=== PATIENT | male | born 1950 | race Caucasian/White ===

== ENCOUNTER 2017-01-10 10:26 | Emergency (ER) | payer MEDICARE, MEDICAID ==
[~2017-01-10] VITALS: Ht 177.8 cm; Wt 70.5 kg
[~2017-01-10 10:26] MED LIST: BLOOD PRESSURE; IBU800 M1 PO; LOPRESSOR; LORTAB 5/500 501 TAB PO; MOTRIN600 MG PO; MOTRIN800 MG PO; MVI; NO HOME MEDICATIONS; NORCO 325 MG-51 TAB PO; ULTRAM50 MG PO; VIBRAMYCIN HYC100 MG PO; VICODIN 5/5001 UDTAB PO
[2017-01-10 10:29] VITALS: BP 186/95; TEMP 97.9
[2017-01-10] MEDS ORDERED: LORTABELIX PO (10:54)
[2017-01-10 11:22] LABS: BASO # 0.1 (0.0-0.2); BASO % 0.7 % (0.0-2.0); EOS # 0.1 (0.0-0.7); EOS % 1.3 % (0-4.0); GRAN # 4.5 (1.4-6.5); GRAN % 51.3 % (42.2-75.2); HEMATOCRIT 45.4 % (42.0-52.0); HEMOGLOBIN 15.3 g/dl (13.5-18.0); LYMPH # 3.1 (1.2-3.4); LYMPH % 35.7 % (20.0-51.0); MEAN CELL VOLUME 96 fl (80.0-100.0); MEAN CORPUSCULAR HEMOGLOBIN 32 pg (27.0-31.0); MEAN CORPUSCULAR HGB CONC 34 g/dl (33.0-37.0); MEAN PLATELET VOLUME 11.3 fl (7.4-10.4); MONO # 0.9 (0.1-0.6); MONO % 10.7 % (1.7-9.3); PLATELET COUNT 204 K/mm3 (130-400); RED BLOOD COUNT 4.75 M/mm3 (4.20-5.60); REDCELL DISTRIBUTION WIDTH-CV 14.6 % (11.5-14.5); WHITE BLOOD COUNT 8.7 K/mm3 (4.8-10.8)
[2017-01-10 11:29] LABS: ADJUSTED CALCIUM 8.7 mg/dL (8.4-10.2); ALBUMIN 4.6 gm/dL (3.5-5.0); BILIRUBIN,TOTAL 0.6 mg/dL (0.0-1.0); CALCIUM 9.2 mg/dL (8.4-10.2); CREATININE, serum 0.76 mg/dL (0.66-1.25); POTASSIUM 3.8 mmol/L (3.4-5.0); TOTAL PROTEIN 7.7 gm/dL (6.4-8.2)
[2017-01-10 12:32] LABS: INFLUENZA B NEGATIVE
[2017-01-10 12:33] LABS: PH 6 (5-8); SQUAMOUS EPITHELIAL None Seen /hpf; URINE APPEARANCE Clear; URINE BACTERIA None Seen /hpf; URINE BILIRUBIN Negative (NEGATIVE); URINE BLOOD Negative (NEGATIVE); URINE COLOR Yellow; URINE GLUCOSE Negative (NEGATIVE); URINE KETONE Negative (NEGATIVE); URINE RBC 0-2 /hpf; URINE UROBILINOGEN Negative (NEGATIVE); URINE WBC 0-2 /hpf
[2017-01-10] MEDS ORDERED: PHENERGAN 25 TA25 MG PO (13:03)
[2017-01-10] MEDS ORDERED: ZITHROMAX 250M250 MG PO (13:03)
[2017-01-10] MEDS ORDERED: VENTOLIN0.09 MG IH (13:03)
[2017-01-10] MEDS ORDERED: MEDROL 4MG DOSPA4 MG PO (13:03)
[2017-01-10] MEDS ORDERED: NORVASC 5MG5 MG/TAB PO (13:04)
[2017-01-10 13:30] VITALS: PULSE 55
[2017-05-17] MEDS ORDERED: NORCO 325 MG-51 TAB PO (08:22)
[2017-05-17] MEDS ORDERED: MOTRIN 800800 MG/TAB PO (08:22)
== END 2017-01-10 13:30 | disposition home or self-care (01) ==
LOC: COL.ER 10:26
PROVIDERS: Emergency Medicine
DX: J44.1 Chronic obstructive pulmonary disease with (acute) exacerbation (principal); F11.23 Opioid dependence with withdrawal; T40.2X5A Adverse effect of other opioids, initial encounter; I10 Essential (primary) hypertension; R11.2 Nausea with vomiting, unspecified; F17.210 Nicotine dependence, cigarettes, uncomplicated
CPT/HCPCS: J1170; J2550; J7030; J7512

== ENCOUNTER 2018-02-06 05:52 | Emergency (ER) | payer MEDICARE ==
[~2018-02-06] VITALS: Ht 177.8 cm; Wt 72.7 kg
[~2018-02-06 05:52] MED LIST changes: +LORTABELIX PO; +MEDROL 4MG DOSPA4 MG PO; +MOTRIN 800800 MG/TAB PO; +NORVASC 5MG5 MG/TAB PO; +PHENERGAN 25 TA25 MG PO; +VENTOLIN0.09 MG IH; +ZITHROMAX 250M250 MG PO
[2018-02-06 05:55] VITALS: BP 174/96; TEMP 97.6
[2018-02-06] MEDS ORDERED: LIDODERM 5% PATC1 EA TP (07:13)
[2018-02-06 07:47] VITALS: PULSE 60
== END 2018-02-06 07:48 | disposition home or self-care (01) ==
LOC: COL.ER 05:52
DX: M25.511 Pain in right shoulder (principal); F17.210 Nicotine dependence, cigarettes, uncomplicated; X50.0XXA Overexertion from strenuous movement or load, initial encounter
CPT/HCPCS: J7512

== ENCOUNTER 2018-02-19 14:58 | Inpatient (IN) | payer MEDICARE ==
[~2018-02-19] VITALS: Ht 177.8 cm; Wt 79.6 kg
[~2018-02-19 14:58] MED LIST changes: +LIDODERM 5% PATC1 EA TP
[2018-02-19 15:47] LABS: BASO % 0.2 % (0.0-2.0); EOS % 0.1 % (0-4.0); GRAN # 17.1 (1.4-6.5); HEMATOCRIT 44.2 % (42.0-52.0); LYMPH % 5.1 % (20.0-51.0); MEAN CELL VOLUME 92 fl (80.0-100.0); MEAN CORPUSCULAR HEMOGLOBIN 33 pg (27.0-31.0); MEAN CORPUSCULAR HGB CONC 36 g/dl (33.0-37.0); MONO # 1.5 (0.1-0.6); MONO % 7.7 % (1.7-9.3); PLATELET COUNT 109 K/mm3 (130-400); RED BLOOD COUNT 4.82 M/mm3 (4.20-5.60); REDCELL DISTRIBUTION WIDTH-CV 14.5 % (11.5-14.5)
[2018-02-19 15:59] LABS: ALBUMIN 3.5 gm/dL (3.5-5.0); CALCIUM 9.6 mg/dL (8.4-10.2); CREATININE, serum 1.68 mg/dL (0.66-1.25); POTASSIUM 3.5 mmol/L (3.4-5.0)
[2018-02-19] MEDS ORDERED: NEXIUM 20MG20 MG PO (16:02)
[2018-02-19] MEDS ORDERED: ASPIRIN 32325 MG/TAB PO (16:02)
[2018-02-19 16:08] LABS: TROPONIN-I 0.019 ng/mL (0.000-0.034)
[2018-02-19 16:30] LABS: C-REACTIVE PROTEIN 41.9 mg/dL (0.0-0.9)
[2018-02-19 17:32] LABS: COLLECTION METHOD CLEAN CATCH
[2018-02-19 17:40] LABS: HYALINE CAST >12 /lpf; MUCOUS Present /lpf; PH 5 (5-8); SQUAMOUS EPITHELIAL 0-2 /hpf; URINE APPEARANCE Cloudy; URINE BACTERIA None Seen /hpf; URINE BILIRUBIN Negative (NEGATIVE); URINE BLOOD 2+ (NEGATIVE); URINE COLOR Amber; URINE GLUCOSE Negative (NEGATIVE); URINE KETONE Trace (NEGATIVE); URINE LEUKOCYTE ESTERASE Negative (NEGATIVE); URINE NITRATE Negative (NEGATIVE); URINE PROTEIN(semi-quant) 2+ (NEGATIVE); URINE RBC 20-50 /hpf; URINE UROBILINOGEN Negative (NEGATIVE)
[2018-02-19 17:47] LABS: MAGNESIUM 2.2 mg/dL (1.6-2.3); PHOSPHOROUS 4.1 mg/dL (2.5-4.5)
[2018-02-19 22:15] VITALS: BP 152/98; PULSE 72; TEMP 98.6
[2018-02-19 22:59] LABS: CHOLESTEROL RISK RATIO 3.4
[2018-02-19 23:29] LABS: PARTIAL THROMBOPLASTIN TIME 28.3 SECONDS (26.0-37.0)
[2018-02-19 23:51] VITALS: BP 143/92; PULSE 71; TEMP 97.9
[2018-02-20] VITALS (18 sets, daily range): BP systolic 139–172; BP diastolic 79–95; PULSE 61–93; TEMP 97.1–98.8
[2018-02-20 07:59] LABS: BASO % 0.3 % (0.0-2.0); EOS % 0.2 % (0-4.0); GRAN # 11.2 (1.4-6.5); GRAN % 82.7 % (42.2-75.2); HEMATOCRIT 38.2 % (42.0-52.0); LYMPH # 0.9 (1.2-3.4); LYMPH % 6.7 % (20.0-51.0); MEAN CORPUSCULAR HGB CONC 34 g/dl (33.0-37.0); MEAN PLATELET VOLUME 11.4 fl (7.4-10.4); MONO # 1.3 (0.1-0.6); MONO % 9.3 % (1.7-9.3); PLATELET COUNT 96 K/mm3 (130-400); RED BLOOD COUNT 3.89 M/mm3 (4.20-5.60); REDCELL DISTRIBUTION WIDTH-CV 15.5 % (11.5-14.5)
[2018-02-20 08:03] LABS: MEAN CELL VOLUME 98 fl (80.0-100.0); MEAN CORPUSCULAR HEMOGLOBIN 33 pg (27.0-31.0)
[2018-02-20 08:16] LABS: ALBUMIN 2.7 gm/dL (3.5-5.0); BILIRUBIN,TOTAL 0.6 mg/dL (0.0-1.0); CALCIUM 8.2 mg/dL (8.4-10.2); CREATININE, serum 0.96 mg/dL (0.66-1.25); MAGNESIUM 2.6 mg/dL (1.6-2.3); POTASSIUM 3.3 mmol/L (3.4-5.0); TOTAL PROTEIN 5.5 gm/dL (6.4-8.2)
[2018-02-20 12:17] LABS: TRICYCLIC ANTIDEPRESS URINE NEGATIVE
[2018-02-21] VITALS (11 sets, daily range): BP systolic 127–191; BP diastolic 66–98; PULSE 79–101; TEMP 97.6–99.5
[2018-02-21 07:35] LABS: BASO % 0.2 % (0.0-2.0); EOS # 0.1 (0.0-0.7); EOS % 0.5 % (0-4.0); GRAN # 9.8 (1.4-6.5); GRAN % 81.3 % (42.2-75.2); HEMOGLOBIN 11.6 g/dl (13.5-18.0); LYMPH # 0.8 (1.2-3.4); LYMPH % 6.7 % (20.0-51.0); MEAN CELL VOLUME 96 fl (80.0-100.0); MEAN CORPUSCULAR HEMOGLOBIN 33 pg (27.0-31.0); MEAN CORPUSCULAR HGB CONC 34 g/dl (33.0-37.0); MONO # 1.3 (0.1-0.6); MONO % 10.6 % (1.7-9.3); PLATELET COUNT 121 K/mm3 (130-400); RED BLOOD COUNT 3.53 M/mm3 (4.20-5.60); REDCELL DISTRIBUTION WIDTH-CV 15.4 % (11.5-14.5)
[2018-02-21 07:44] LABS: HEMATOCRIT 33.8 % (42.0-52.0)
[2018-02-21 07:54] LABS: ALBUMIN 2.5 gm/dL (3.5-5.0); BILIRUBIN,TOTAL 0.5 mg/dL (0.0-1.0); CALCIUM 8.2 mg/dL (8.4-10.2); CREATININE, serum 0.71 mg/dL (0.66-1.25); POTASSIUM 3.3 mmol/L (3.4-5.0); TOTAL PROTEIN 5.2 gm/dL (6.4-8.2)
[2018-02-22] VITALS (11 sets, daily range): BP systolic 127–161; BP diastolic 56–95; PULSE 78–89; TEMP 97.7–99.9
[2018-02-22 07:06] LABS: HEMOGLOBIN 11.8 g/dl (13.5-18.0); MEAN CELL VOLUME 96 fl (80.0-100.0); MEAN CORPUSCULAR HEMOGLOBIN 33 pg (27.0-31.0); MEAN CORPUSCULAR HGB CONC 35 g/dl (33.0-37.0); PLATELET COUNT 146 K/mm3 (130-400); RED BLOOD COUNT 3.57 M/mm3 (4.20-5.60); REDCELL DISTRIBUTION WIDTH-CV 15.2 % (11.5-14.5)
[2018-02-22 07:09] LABS: HEMATOCRIT 34.1 % (42.0-52.0)
[2018-02-22 07:22] LABS: ALBUMIN 2.4 gm/dL (3.5-5.0); BILIRUBIN,TOTAL 0.8 mg/dL (0.0-1.0); CALCIUM 8.6 mg/dL (8.4-10.2); CREATININE, serum 0.72 mg/dL (0.66-1.25); POTASSIUM 3.3 mmol/L (3.4-5.0); TOTAL PROTEIN 5.1 gm/dL (6.4-8.2)
[2018-02-22 08:05] LABS: LYMPHOCYTE 8 % (20.0-51.0); NEUTROPHILS 79 % (42.0-75.2)
[2018-02-22 08:08] LABS: HYPOCHROMIA 1+
[2018-02-22 08:09] LABS: PLATELET ESTIMATE DECREASED (NORMAL)
[2018-02-23] VITALS (9 sets, daily range): BP systolic 132–165; BP diastolic 78–94; PULSE 74–90; TEMP 97.8–99.4
[2018-02-23 06:54] LABS: HEMOGLOBIN 12.3 g/dl (13.5-18.0); MEAN CELL VOLUME 94 fl (80.0-100.0); MEAN CORPUSCULAR HEMOGLOBIN 33 pg (27.0-31.0); MEAN CORPUSCULAR HGB CONC 35 g/dl (33.0-37.0); MEAN PLATELET VOLUME 10.9 fl (7.4-10.4); PLATELET COUNT 179 K/mm3 (130-400); RED BLOOD COUNT 3.72 M/mm3 (4.20-5.60); REDCELL DISTRIBUTION WIDTH-CV 14.7 % (11.5-14.5)
[2018-02-23 06:56] LABS: POTASSIUM 3.2 mmol/L (3.4-5.0)
[2018-02-23 07:03] LABS: HEMATOCRIT 35.1 % (42.0-52.0)
[2018-02-23 07:10] LABS: ALBUMIN 2.5 gm/dL (3.5-5.0); BILIRUBIN,TOTAL 0.7 mg/dL (0.0-1.0); CALCIUM 8.8 mg/dL (8.4-10.2); CREATININE, serum 0.55 mg/dL (0.66-1.25); POTASSIUM 3.2 mmol/L (3.4-5.0); TOTAL PROTEIN 5.3 gm/dL (6.4-8.2)
[2018-02-23 07:27] LABS: BAND 17 % (0-10); BASOPHIL 1 % (0-2); EOSINOPHIL 2 % (0-4); LYMPHOCYTE 8 % (20.0-51.0); NEUTROPHILS 68 % (42.0-75.2)
[2018-02-23 07:28] LABS: PLATELET ESTIMATE NORMAL (NORMAL); STOMATOCYTE 1+
[2018-02-24 02:04] VITALS: BP 149/84; PULSE 78; TEMP 99.3
[2018-02-24 04:02] VITALS: BP 152/79; PULSE 67; TEMP 97.8
[2018-02-24 06:04] VITALS: BP 160/92; PULSE 78; TEMP 98.1
[2018-02-24 07:47] LABS: HEMATOCRIT 38.7 % (42.0-52.0); HEMOGLOBIN 12.9 g/dl (13.5-18.0); MEAN CELL VOLUME 97 fl (80.0-100.0); MEAN CORPUSCULAR HEMOGLOBIN 32 pg (27.0-31.0); MEAN CORPUSCULAR HGB CONC 33 g/dl (33.0-37.0); MEAN PLATELET VOLUME 11.3 fl (7.4-10.4); PLATELET COUNT 264 K/mm3 (130-400); RED BLOOD COUNT 3.98 M/mm3 (4.20-5.60); REDCELL DISTRIBUTION WIDTH-CV 14.5 % (11.5-14.5)
[2018-02-24 07:53] LABS: CALCIUM 9.5 mg/dL (8.4-10.2); CREATININE, serum 0.68 mg/dL (0.66-1.25); POTASSIUM 3.7 mmol/L (3.4-5.0)
[2018-02-24 08:17] VITALS: BP 146/86; PULSE 85; TEMP 98.1
[2018-02-24 08:18] LABS: BAND 16 % (0-10); EOSINOPHIL 1 % (0-4); LYMPHOCYTE 13 % (20.0-51.0); METAMYELOCYTE 1 % (0-0); NEUTROPHILS 62 % (42.0-75.2)
[2018-02-24 08:19] LABS: HYPOCHROMIA 1+; PLATELET ESTIMATE NORMAL (NORMAL)
[2018-02-24 08:20] LABS: MICROCYTOSIS 1+
[2018-02-24 09:58] VITALS: BP 132/83; PULSE 71; TEMP 97.8
[2018-02-24] MEDS ORDERED: AMOXICILLIN 8751 TAB PO (10:47)
[2018-02-24] MEDS ORDERED: COREG 6.256.25 MG/TA PO (10:48)
[2018-02-24] MEDS ORDERED: NORVASC 10MG10 MG PO (10:48)
[2018-02-24] MEDS ORDERED: [UNRECOGNIZED DRUG - CODE] PO (10:49)
[2018-02-25] MEDS ORDERED: CREON 120000 U-1 ECC PO (16:10)
== END 2018-02-24 14:22 | disposition home or self-care (01) | DRG 871 ==
LOC: COL.ER 14:58 → MEDICAL 18:05
PROVIDERS: Emergency Medicine; Hospitalist; Internal Medicine Gastroenterology; Internal Medicine Pulmonary Disease; Nurse Practitioner Family
PROC: 0DB68ZX Excision of Stomach, Via Natural or Artificial Opening Endoscopic, Diagnostic (ICD-10-PCS; principal; 2018-02-20 10:00)
DX: A41.9 Sepsis, unspecified organism (principal); K85.21 Alcohol induced acute pancreatitis with uninfected necrosis; N17.9 Acute kidney failure, unspecified; E87.1 Hypo-osmolality and hyponatremia; N13.8 Other obstructive and reflux uropathy; K56.7 Ileus, unspecified; E44.0 Moderate protein-calorie malnutrition; K70.30 Alcoholic cirrhosis of liver without ascites; I10 Essential (primary) hypertension; F17.210 Nicotine dependence, cigarettes, uncomplicated; F10.10 Alcohol abuse, uncomplicated; N40.1 Benign prostatic hyperplasia with lower urinary tract symptoms; E87.6 Hypokalemia; E83.42 Hypomagnesemia; D69.6 Thrombocytopenia, unspecified; I70.0 Atherosclerosis of aorta; J44.9 Chronic obstructive pulmonary disease, unspecified; R31.9 Hematuria, unspecified; K29.30 Chronic superficial gastritis without bleeding; K44.9 Diaphragmatic hernia without obstruction or gangrene
CPT/HCPCS: 99223-AI; 99233-AI; 99239; A9284; C9113; J0360; J1170; J2060; J2185; J2405; J2543; J2704; J3411; J3475; J3480; J7030; Q9967

== ENCOUNTER 2018-06-03 23:04 | Emergency (ER) | payer MEDICARE, MEDICAID ==
[~2018-06-03] VITALS: Ht 177.8 cm; Wt 70.5 kg
[~2018-06-03 23:04] MED LIST changes: +AMOXICILLIN 8751 TAB PO; +ASPIRIN 32325 MG/TAB PO; +COREG 6.256.25 MG/TA PO; +CREON 120000 U-1 ECC PO; +NEXIUM 20MG20 MG PO; +NORVASC 10MG10 MG PO; +[UNRECOGNIZED DRUG - CODE] PO
[2018-06-03 23:55] LABS: HEMATOCRIT 41.6 % (42.0-52.0); HEMOGLOBIN 14.4 g/dl (13.5-18.0); MEAN CELL VOLUME 91 fl (80.0-100.0); MEAN CORPUSCULAR HEMOGLOBIN 32 pg (27.0-31.0); MEAN CORPUSCULAR HGB CONC 35 g/dl (33.0-37.0); MEAN PLATELET VOLUME 10.5 fl (7.4-10.4); PLATELET COUNT 185 K/mm3 (130-400); RED BLOOD COUNT 4.55 M/mm3 (4.20-5.60); REDCELL DISTRIBUTION WIDTH-CV 13.7 % (11.5-14.5)
[2018-06-04 00:06] LABS: ALANINE AMINOTRANSFERASE 30 U/L (21-72); ALBUMIN 4.5 gm/dL (3.5-5.0); ALCOHOL(ethanol),MEDICAL 40 mg/dL; ALKALINE PHOSPHATASE 90 U/L (50-136); ANION GAP 9 mmol/L (7-16); AST,SGOT 45 U/L (15-37); BILIRUBIN,TOTAL 0.3 mg/dL (0.0-1.0); BLOOD UREA NITROGEN 17 mg/dL (9-20); CALCIUM 9.8 mg/dL (8.4-10.2); CARBON DIOXIDE 29 mmol/L (22-30); CHLORIDE 98 mmol/L (98-107); CREATININE, serum 0.79 mg/dL (0.66-1.25); GLUCOSE 99 mg/dL (74-106); POTASSIUM 3.8 mmol/L (3.4-5.0); SODIUM 136 mmol/L (137-145); TOTAL PROTEIN 8.1 gm/dL (6.4-8.2)
[2018-06-04 00:17] LABS: TROPONIN-I < 0.012 ng/mL (0.000-0.034)
[2018-06-04 01:08] LABS: ANISOCYTOSIS 1+; BAND 3 % (0-10); BASOPHIL 2 % (0-2); EOSINOPHIL 3 % (0-4); HYPOCHROMIA 1+; LYMPHOCYTE 55 % (20.0-51.0); NEUTROPHILS 25 % (42.0-75.2); NUCLEATED RED BLOOD CELL 5 (0-6); PLATELET ESTIMATE NORMAL (NORMAL)
[2018-06-04] MEDS ORDERED: NORCO 325 MG-51 TAB PO (01:19)
[2018-06-04 02:17] VITALS: BP 167/106; PULSE 55
[2018-06-06 08:19] LABS: PATHOLOGY DIFF REVIEW OK
== END 2018-06-04 02:17 | disposition home or self-care (01) ==
LOC: COL.ER 23:04
PROVIDERS: Physician Assistant
DX: M25.511 Pain in right shoulder (principal); I95.9 Hypotension, unspecified; F17.210 Nicotine dependence, cigarettes, uncomplicated
CPT/HCPCS: J2060

== ENCOUNTER 2018-06-12 03:00 | Emergency (ER) | payer MEDICARE, MEDICAID ==
[~2018-06-12] VITALS: Ht 177.8 cm; Wt 68.2 kg
[2018-06-12 03:04] VITALS: TEMP 98.1
[2018-06-12] MEDS ORDERED: NORVASC 5MG5 MG/TAB PO (03:08)
[2018-06-12 03:56] LABS: HEMATOCRIT 46.9 % (42.0-52.0); MEAN CELL VOLUME 93 fl (80.0-100.0); MEAN CORPUSCULAR HEMOGLOBIN 32 pg (27.0-31.0); MEAN CORPUSCULAR HGB CONC 34 g/dl (33.0-37.0); MEAN PLATELET VOLUME 10.6 fl (7.4-10.4); PLATELET COUNT 200 K/mm3 (130-400); RED BLOOD COUNT 5.04 M/mm3 (4.20-5.60); REDCELL DISTRIBUTION WIDTH-CV 14.1 % (11.5-14.5)
[2018-06-12 04:17] LABS: ALANINE AMINOTRANSFERASE 41 U/L (21-72); ALBUMIN 4.5 gm/dL (3.5-5.0); ALKALINE PHOSPHATASE 99 U/L (50-136); ANION GAP 9 mmol/L (7-16); AST,SGOT 56 U/L (15-37); BILIRUBIN,TOTAL 0.5 mg/dL (0.0-1.0); BLOOD UREA NITROGEN 26 mg/dL (9-20); CALCIUM 9.7 mg/dL (8.4-10.2); CARBON DIOXIDE 29 mmol/L (22-30); CHLORIDE 96 mmol/L (98-107); GLUCOSE 90 mg/dL (74-106); LIPASE 44 U/L (23-300); POTASSIUM 3.9 mmol/L (3.4-5.0); SODIUM 134 mmol/L (137-145); TOTAL PROTEIN 8.4 gm/dL (6.4-8.2)
[2018-06-12 04:23] LABS: ALCOHOL(ethanol),MEDICAL < 10 mg/dL
[2018-06-12 06:15] LABS: TROPONIN-I < 0.012 ng/mL (0.000-0.034)
[2018-06-12 06:20] VITALS: BP 153/100; PULSE 58
[2018-06-12 07:47] LABS: BAND 4 % (0-10); EOSINOPHIL 1 % (0-4); LYMPHOCYTE 37 % (20.0-51.0); NEUTROPHILS 50 % (42.0-75.2); PLATELET ESTIMATE NORMAL (NORMAL)
== END 2018-06-12 06:46 | disposition home or self-care (01) ==
LOC: COL.ER 03:00
PROVIDERS: Emergency Medicine
DX: G89.29 Other chronic pain (principal); M25.511 Pain in right shoulder; F17.210 Nicotine dependence, cigarettes, uncomplicated; I10 Essential (primary) hypertension
CPT/HCPCS: J1170; J2060

== ENCOUNTER 2018-06-16 02:54 | Emergency (ER) | payer MEDICARE ==
[~2018-06-16] VITALS: Ht 177.8 cm; Wt 68.2 kg
[2018-06-16 02:59] VITALS: BP 156/97; TEMP 97.1
[2018-06-16] MEDS ORDERED: NORCO 325 MG-51 TAB PO (04:32)
[2018-06-16] MEDS ORDERED: CIPRO 500MG TA500 MG PO (04:36)
[2018-06-16 04:40] VITALS: PULSE 60
== END 2018-06-16 04:44 | disposition home or self-care (01) ==
LOC: COL.ER 02:54
DX: M25.511 Pain in right shoulder (principal); F17.210 Nicotine dependence, cigarettes, uncomplicated
CPT/HCPCS: J1170

== ENCOUNTER 2018-06-19 01:36 | Emergency (ER) | payer MEDICARE ==
[~2018-06-19] VITALS: Ht 177.8 cm; Wt 68.2 kg
[~2018-06-19 01:36] MED LIST changes: +CIPRO 500MG TA500 MG PO
[2018-06-19 01:39] VITALS: BP 165/100; TEMP 97.5
[2018-06-19 02:53] LABS: BASO % 0.4 % (0.0-2.0); EOS # 0.3 (0.0-0.7); EOS % 3.4 % (0-4.0); GRAN # 2.7 (1.4-6.5); GRAN % 36.3 % (42.2-75.2); HEMATOCRIT 41.9 % (42.0-52.0); HEMOGLOBIN 14.2 g/dl (13.5-18.0); LYMPH # 3.7 (1.2-3.4); LYMPH % 49.7 % (20.0-51.0); MEAN CELL VOLUME 94 fl (80.0-100.0); MEAN CORPUSCULAR HEMOGLOBIN 32 pg (27.0-31.0); MEAN CORPUSCULAR HGB CONC 34 g/dl (33.0-37.0); MONO # 0.7 (0.1-0.6); MONO % 9.7 % (1.7-9.3); PLATELET COUNT 161 K/mm3 (130-400); RED BLOOD COUNT 4.48 M/mm3 (4.20-5.60); REDCELL DISTRIBUTION WIDTH-CV 14.1 % (11.5-14.5)
[2018-06-19 03:03] LABS: ALANINE AMINOTRANSFERASE 40 U/L (21-72); ALBUMIN 3.8 gm/dL (3.5-5.0); ALKALINE PHOSPHATASE 91 U/L (50-136); ANION GAP 6 mmol/L (7-16); AST,SGOT 44 U/L (15-37); BILIRUBIN,TOTAL 0.2 mg/dL (0.0-1.0); BLOOD UREA NITROGEN 18 mg/dL (9-20); CALCIUM 9.1 mg/dL (8.4-10.2); CARBON DIOXIDE 27 mmol/L (22-30); CHLORIDE 107 mmol/L (98-107); CREATININE, serum 0.74 mg/dL (0.66-1.25); GLUCOSE 91 mg/dL (74-106); POTASSIUM 3.7 mmol/L (3.4-5.0); SODIUM 140 mmol/L (137-145); TOTAL PROTEIN 6.8 gm/dL (6.4-8.2)
[2018-06-19 03:24] LABS: TROPONIN-I < 0.012 ng/mL (0.000-0.034)
[2018-06-19] MEDS ORDERED: FLEXERIL 1010 MG/TAB PO (03:31)
[2018-06-19 03:47] VITALS: PULSE 62
== END 2018-06-19 03:47 | disposition home or self-care (01) ==
LOC: COL.ER 01:36
PROVIDERS: Emergency Medicine
DX: M54.12 Radiculopathy, cervical region (principal); I10 Essential (primary) hypertension; F17.210 Nicotine dependence, cigarettes, uncomplicated; Z86.19 Personal history of other infectious and parasitic diseases
CPT/HCPCS: J2270

== ENCOUNTER → 2018-06-20 | Outpatient (CLI) | payer MEDICARE, MEDICAID ==
[~2018-06-20] MED LIST changes: +FLEXERIL 1010 MG/TAB PO
== END ==
LOC: COL.RAD 12:30
DX: M25.511 Pain in right shoulder (principal)
CPT/HCPCS: J3301; Q9967

== ENCOUNTER 2019-02-12 13:11 | Emergency (ER) | payer MEDICARE, MEDICAID ==
[~2019-02-12] VITALS: Ht 177.8 cm; Wt 68.2 kg
[2019-02-12 13:12] VITALS: TEMP 98.3
[2019-02-12 13:32] LABS: BASO % 0.6 % (0.0-2.0); EOS # 0.1 (0.0-0.7); EOS % 1.1 % (0-4.0); GRAN # 2.7 (1.4-6.5); GRAN % 38.1 % (42.2-75.2); HEMATOCRIT 44.8 % (42.0-52.0); HEMOGLOBIN 15.6 g/dl (13.5-18.0); LYMPH # 3.2 (1.2-3.4); LYMPH % 45.4 % (20.0-51.0); MEAN CELL VOLUME 96 fl (80.0-100.0); MEAN CORPUSCULAR HEMOGLOBIN 33 pg (27.0-31.0); MEAN CORPUSCULAR HGB CONC 35 g/dl (33.0-37.0); MEAN PLATELET VOLUME 10.9 fl (7.4-10.4); MONO % 14.4 % (1.7-9.3); PLATELET COUNT 149 K/mm3 (130-400); RED BLOOD COUNT 4.68 M/mm3 (4.20-5.60); REDCELL DISTRIBUTION WIDTH-CV 15.5 % (11.5-14.5)
[2019-02-12 13:43] LABS: ALANINE AMINOTRANSFERASE 94 U/L (21-72); ALBUMIN 4.2 gm/dL (3.5-5.0); ALCOHOL(ethanol),MEDICAL 122 mg/dL; ALKALINE PHOSPHATASE 92 U/L (50-136); ANION GAP 14 mmol/L (7-16); AST,SGOT 192 U/L (15-37); BILIRUBIN,TOTAL 0.5 mg/dL (0.0-1.0); BLOOD UREA NITROGEN 6 mg/dL (9-20); CALCIUM 9.9 mg/dL (8.4-10.2); CARBON DIOXIDE 25 mmol/L (22-30); CHLORIDE 99 mmol/L (98-107); CREATININE, serum 0.61 (0.66-1.25); GLUCOSE 168 mg/dL (74-106); POTASSIUM 3.6 mmol/L (3.4-5.0); SODIUM 138 mmol/L (137-145); TOTAL PROTEIN 7.4 gm/dL (6.4-8.2)
[2019-02-12 13:56] LABS: TROPONIN-I < 0.012 ng/mL (0.000-0.035)
[2019-02-12 14:03] LABS: COLLECTION METHOD CLEAN CATCH
[2019-02-12 14:12] LABS: PH 6 (5-8); SQUAMOUS EPITHELIAL None Seen /hpf; URINE APPEARANCE Clear; URINE BACTERIA None Seen /hpf; URINE BILIRUBIN Negative (NEGATIVE); URINE BLOOD Negative (NEGATIVE); URINE COLOR Straw; URINE GLUCOSE Negative (NEGATIVE); URINE KETONE Negative (NEGATIVE); URINE LEUKOCYTE ESTERASE Negative (NEGATIVE); URINE NITRATE Negative (NEGATIVE); URINE PROTEIN(semi-quant) Negative (NEGATIVE); URINE RBC None Seen /hpf; URINE UROBILINOGEN Negative (NEGATIVE)
[2019-02-12] MEDS ORDERED: COREG12.5 MG PO (14:33)
[2019-02-12] MEDS ORDERED: PREDNISONE20 MG PO (16:47)
[2019-02-12 17:04] VITALS: BP 151/94; PULSE 60
== END 2019-02-12 17:07 | disposition home or self-care (01) ==
LOC: COL.ER 13:11
PROVIDERS: Family Medicine
DX: J44.1 Chronic obstructive pulmonary disease with (acute) exacerbation (principal); F17.210 Nicotine dependence, cigarettes, uncomplicated
CPT/HCPCS: J2270; J2930; J7030

== ENCOUNTER → 2019-06-15 | Outpatient (CLI) | payer MEDICARE, MEDICAID ==
[~2019-06-15] MED LIST changes: +COREG12.5 MG PO; +PREDNISONE20 MG PO
== END ==
LOC: COL.RAD 08:43
DX: F17.210 Nicotine dependence, cigarettes, uncomplicated (principal); I77.810 Thoracic aortic ectasia

== ENCOUNTER 2020-05-09 09:55 | Inpatient (IN) | payer MEDICARE, MEDICAID ==
[2020-05-09] VITALS (374 sets, daily range): BP systolic 100–136; BP diastolic 66–88; PULSE 59–69; TEMP 97.8–98.4; O2SAT 87–98
[~2020-05-09] VITALS: Ht 177.8 cm; Wt 71.8 kg
[2020-05-09 10:19] LABS: BASO % 0.3 % (0.0-2.0); EOS # 0.2 (0.0-0.7); EOS % 2.1 % (0-4.0); GRAN # 5.9 (1.4-6.5); HEMATOCRIT 42.5 % (42.0-52.0); HEMOGLOBIN 14.8 g/dl (13.5-18.0); LYMPH # 1.4 (1.2-3.4); LYMPH % 15.7 % (20.0-51.0); MEAN CELL VOLUME 98 fl (80.0-100.0); MEAN CORPUSCULAR HEMOGLOBIN 34 pg (27.0-31.0); MEAN CORPUSCULAR HGB CONC 35 g/dl (33.0-37.0); MEAN PLATELET VOLUME 11.7 fl (7.4-10.4); MONO # 1.1 (0.1-0.6); MONO % 12.7 % (1.7-9.3); PLATELET COUNT 112 K/mm3 (130-400); RED BLOOD COUNT 4.34 M/mm3 (4.20-5.60); REDCELL DISTRIBUTION WIDTH-CV 13.6 % (11.5-14.5)
[2020-05-09 10:26] LABS: ALANINE AMINOTRANSFERASE 36 U/L (4-49); ALKALINE PHOSPHATASE 79 U/L (50-136); ANION GAP 12 mmol/L (7-16); AST,SGOT 58 U/L (15-37); BLOOD UREA NITROGEN 10 mg/dL (9-20); CALCIUM 9.2 mg/dL (8.4-10.2); CARBON DIOXIDE 28 mmol/L (22-30); CHLORIDE 95 mmol/L (98-107); CREATININE, serum 0.67 (0.66-1.25); GLUCOSE 116 mg/dL (74-106); POTASSIUM 3.3 mmol/L (3.4-5.0); SODIUM 136 mmol/L (137-145); TOTAL PROTEIN 6.7 gm/dL (6.4-8.2)
[2020-05-09 10:27] LABS: ALCOHOL(ethanol),MEDICAL < 10 mg/dL
[2020-05-09 10:30] LABS: INR 0.9 (0.8-3.0); PROTHROMBIN TIME 10.3 SECONDS (9.7-12.8)
[2020-05-09 10:42] LABS: PROLACTIN 18.3 ng/mL (3.7-17.9)
[2020-05-09] MEDS ORDERED: ANORO IH (11:11)
[2020-05-09] MEDS ORDERED: NORCO 325 MG-51 TAB PO (11:12)
[2020-05-09] MEDS ORDERED: PROVENTIL0.09 MG/A1 IH (11:12)
--- NOTE | 2020-05-09 11:45 | NUR ---
Patient arrived from ER via stretcher. Patient on RA, with IVF and banana bag running through IV. Patient lying in bed comfortably and in no distress and is just requesting pain meds. ER nurse said he has been requesting pain meds since arrival but the doctor refused to order anything.
--- NOTE | 2020-05-09 12:30 | NUR ---
was called to verify patients home medications. SHe was able to read off labels of medications at home. also is at patients bedside.
--- NOTE | 2020-05-09 13:30 | NUR ---
Patients called asking for an update. SHe was very spastic, all over the place with comments and questions. She was cursing at RN and started to raise her voice. Her mood seemed extremely labile, yelling at RN one second then apologizing the next. Per ER nurse the apparently is a meth user and is very well known by EMS. The was assured that the patient is being taken care of and is getting rest.
[2020-05-09 14:13] LABS: COLLECTION METHOD CLEAN CATCH
[2020-05-09 14:22] LABS: MUCOUS Present /lpf; PH 7 (5-8); SQUAMOUS EPITHELIAL None Seen /hpf; URINE APPEARANCE Hazy; URINE BACTERIA None Seen /hpf; URINE BILIRUBIN Negative (NEGATIVE); URINE BLOOD Negative (NEGATIVE); URINE COLOR Yellow; URINE GLUCOSE Negative (NEGATIVE); URINE KETONE Trace (NEGATIVE); URINE LEUKOCYTE ESTERASE Negative (NEGATIVE); URINE NITRATE Negative (NEGATIVE); URINE PROTEIN(semi-quant) Negative (NEGATIVE); URINE RBC 0-2 /hpf; URINE UROBILINOGEN Negative (NEGATIVE)
[2020-05-09 14:29] LABS: TRICYCLIC ANTIDEPRESS URINE NEGATIVE
--- NOTE | 2020-05-09 19:42 | NUR ---
Pt is complaining of pain of 10/10 on his back and mostly all over as he verbalized. pt on [place] every 8 hours, was given extra dose at 5:00 pm. pt normally takes it at home every 4-6 hours. Sylvia RODRIGUES notified and will re-adjust norco to every 4. pt also has no DVT prophylaxis and this was also relayed tp the DR, and latter will put order in.
--- NOTE | 2020-05-09 20:38 | NUR ---
DR. BOX AT BEDSIDE ASSESSING PT.
--- NOTE | 2020-05-09 22:11 | NUR ---
PT'S DAUGHTER TABBY CALLED AND PT OKAY WITH RELESING INFORMATION TO THE DAUGHTER. DAUGHTER UPDATED, ALL QUESTIONS ANSWERED AND PT'S DIRTECT PHONE NUMBER IN THE ROOM GIVEN.
--- NOTE | 2020-05-09 22:32 | NUR ---
PT'S DAUGHTER GIUSEPPE CALLED AND PT IS SLEEPING AT THIS TIME AND WAS IN SO MUCH PAIN EARLIER THAT I DON'T WANT TO DISRUPT HIS SLEEP HENCE I COULD NOT ASK HIS PERMISSION TO RELEASE INFORMATION TO HER. DAUGHTER AGREABLE TO THIS AND WAS INFORMED THAT I SPOKE TO TABBY EARLIER AND UPDATED HER WITH WHAT'S GOING ON AND THE PLAN OF CARE. WILL ASK PT FOR HIS PERMISSION ONCE HIS AWAKE.
[2020-05-10] VITALS (451 sets, daily range): BP systolic 101–144; BP diastolic 64–102; PULSE 57–76; TEMP 97.8–99; O2SAT 78–98
[2020-05-10 04:44] LABS: BASO % 0.5 % (0.0-2.0); EOS # 0.2 (0.0-0.7); EOS % 2.8 % (0-4.0); GRAN # 4.2 (1.4-6.5); GRAN % 55.9 % (42.2-75.2); HEMATOCRIT 34.9 % (42.0-52.0); HEMOGLOBIN 12.1 g/dl (13.5-18.0); LYMPH # 2.1 (1.2-3.4); LYMPH % 28.3 % (20.0-51.0); MEAN CELL VOLUME 99 fl (80.0-100.0); MEAN CORPUSCULAR HEMOGLOBIN 34 pg (27.0-31.0); MEAN CORPUSCULAR HGB CONC 35 g/dl (33.0-37.0); MEAN PLATELET VOLUME 11.5 fl (7.4-10.4); MONO # 0.9 (0.1-0.6); MONO % 12.1 % (1.7-9.3); PLATELET COUNT 92 K/mm3 (130-400); RED BLOOD COUNT 3.51 M/mm3 (4.20-5.60); REDCELL DISTRIBUTION WIDTH-CV 14.2 % (11.5-14.5)
[2020-05-10 04:51] LABS: CALCIUM 7.9 mg/dL (8.4-10.2); CREATININE, serum 0.59 (0.66-1.25)
[2020-05-10 05:14] LABS: POTASSIUM 2.8 mmol/L (3.4-5.0)
--- NOTE | 2020-05-10 05:15 | NUR ---
POTASSIUM OF 2.[address] BYRD AND WILL ORDER POTASSIUM REPLACEMENT.
--- NOTE | 2020-05-10 06:02 | NUR ---
ORDER FOR POTASSIUM RECEIVED FROM CHRISTIANE, AND THIS CASH REGISTER MECHANIC CLARIFIED ORDER WITH [facility] THE ORDER SAYS TO GIVE 40 MEQ OF KCL IN 250 ML D5W OVER 4 HOURS. PER [facility], ORDER NEEDS TO BE SPLIT IN 2 BAGS PT ONLY HAS PERIPHERAL LINE. WILL CALL [facility] TO FIX ORDER.
--- NOTE | 2020-05-10 06:55 | NUR ---
PT OKAY RELEASING INFORMATION TO DAUGHTERS.
--- NOTE | 2020-05-10 07:12 | NUR ---
REPORT GIVEN TO NATAN DEMARCO.
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
--- NOTE | 2020-05-10 20:15 | NUR ---
Assessment complete. Patient is afebrile with little anxiety and no tremor. He got to medical floor, room 355 at 2000 from [facility]. Patient oriented to room, call light and fall prevention protocol. He complains of generalized pain 8/10. Will continue to monitor.
[2020-05-11 03:09] VITALS: BP 145/80; PULSE 56; TEMP 98.7
--- NOTE | 2020-05-11 05:33 | NUR ---
Patient has had a restful night. He has been scoring 0-1 on the CWA scale. He has had complaints of pain and has received 2 PO Norcos tonight. He has ambulated with standby assistance twice to the bathroom where has voided and had a BM. Will continue to monitor.
[2020-05-11 07:58] VITALS: BP 126/80; PULSE 65; TEMP 97.6
--- NOTE | 2020-05-11 08:55 | NUR ---
PT MENTIONS WANTING TO LEAVE, PT VERY SANIA, PT REPORTS PAIN UNRELIEVED BY NORCO, VITALS REVIEWED, MEDICATIONS GIVEN, ASSESSMENT PERFORMED, FRESH ICE WATER BROUGHT IN FOR PT.
[2020-05-11] MEDS ORDERED: FOLIC ACID 11 MG/TA1 PO (09:44)
[2020-05-11] MEDS ORDERED: KEPPRA1000 MG PO (09:44)
[2020-05-11] MEDS ORDERED: THIAMINE 1100 MG/TAB PO (09:45)
[2020-05-11] MEDS ORDERED: MULTIPLE VITAMI1 TA5 PO (09:45)
--- NOTE | 2020-05-11 10:00 | NUR ---
TELEMETRY REMOVED, IV REMOVED, DISHCARGE EDUCATION PROVIDED, DISCHARGE PAPERWORK SIGNED, PT ESCORTED OUT.
== END 2020-05-11 10:00 | disposition home or self-care (01) | DRG 101 ==
LOC: COL.ER 09:55 → ICU 10:09 → MEDICAL 05-10 19:53
PROVIDERS: Emergency Medicine; ADMIT Student in an Organized Health Care Education/Training Program
DX: R56.9 Unspecified convulsions (principal); F10.10 Alcohol abuse, uncomplicated; E87.6 Hypokalemia; I10 Essential (primary) hypertension; G89.29 Other chronic pain; J44.9 Chronic obstructive pulmonary disease, unspecified; F17.210 Nicotine dependence, cigarettes, uncomplicated
CPT/HCPCS: 99223-AI; 99232-AI; 99239; A9585; J1644; J1953; J2060; J3411; J3475; J3480; J7030

== ENCOUNTER 2020-05-31 11:24 | Emergency (ER) | payer MEDICARE, MEDICAID ==
[~2020-05-31 11:24] MED LIST changes: +ANORO IH; +FOLIC ACID 11 MG/TA1 PO; +KEPPRA1000 MG PO; +MULTIPLE VITAMI1 TA5 PO; +PROVENTIL0.09 MG/A1 IH; +THIAMINE 1100 MG/TAB PO
[2020-05-31 11:26] VITALS: TEMP 97.7
[2020-05-31 12:13] LABS: BASO % 0.5 % (0.0-2.0); EOS # 0.2 (0.0-0.7); EOS % 2.7 % (0-4.0); GRAN # 3.2 (1.4-6.5); GRAN % 41.7 % (42.2-75.2); HEMATOCRIT 41.5 % (42.0-52.0); HEMOGLOBIN 14.2 g/dl (13.5-18.0); LYMPH # 3.4 (1.2-3.4); LYMPH % 44.3 % (20.0-51.0); MEAN CELL VOLUME 98 fl (80.0-100.0); MEAN CORPUSCULAR HEMOGLOBIN 34 pg (27.0-31.0); MEAN CORPUSCULAR HGB CONC 34 g/dl (33.0-37.0); MEAN PLATELET VOLUME 12.4 fl (7.4-10.4); MONO # 0.8 (0.1-0.6); MONO % 10.5 % (1.7-9.3); PLATELET COUNT 200 K/mm3 (130-400); RED BLOOD COUNT 4.24 M/mm3 (4.20-5.60); REDCELL DISTRIBUTION WIDTH-CV 13.5 % (11.5-14.5)
[2020-05-31 12:18] LABS: PROTHROMBIN TIME 10.9 SECONDS (9.7-12.8)
[2020-05-31 12:20] LABS: ALBUMIN 4.2 gm/dL (3.5-5.0); BILIRUBIN,TOTAL 0.4 mg/dL (0.0-1.0); CALCIUM 9.7 mg/dL (8.4-10.2); CREATININE, serum 0.69 (0.66-1.25); POTASSIUM 3.5 mmol/L (3.4-5.0); TOTAL PROTEIN 7.2 gm/dL (6.4-8.2)
[2020-05-31 12:36] LABS: PROLACTIN 7.1 ng/mL (3.7-17.9)
[2020-05-31 13:19] LABS: COLLECTION METHOD CLEAN CATCH
[2020-05-31 13:27] LABS: PH 6 (5-8); SQUAMOUS EPITHELIAL None Seen /hpf; URINE APPEARANCE Clear; URINE BACTERIA None Seen /hpf; URINE BILIRUBIN Negative (NEGATIVE); URINE BLOOD Negative (NEGATIVE); URINE COLOR Straw; URINE GLUCOSE Negative (NEGATIVE); URINE KETONE Negative (NEGATIVE); URINE LEUKOCYTE ESTERASE Negative (NEGATIVE); URINE NITRATE Negative (NEGATIVE); URINE PROTEIN(semi-quant) Negative (NEGATIVE); URINE RBC None Seen /hpf; URINE UROBILINOGEN Negative (NEGATIVE)
--- NOTE | 2020-05-31 14:41 | NUR ---
Virologist responded to consult in the ED and met with patient who presented to the ED with concerns he may have had a seizure. Patient is ready to be discharged from the ED. Prior to meeting with patient, SRINI spoke with Jey, IMER social media executive who reports she is working with patient and his on housing applications. Jey has made patient an appointment with [facility] next week. Jey reports she has talked with patient about alcohol treatment but that he is not receptive. SRINI then met with patient who lives in [place] with his , Lu (ph#[phone]) [address] sees Dr. Jaquez at [facility] for primary care. Patient reports he has been drinking today and states he only drinks about a couple beers a day, which is much less than he used to drink daily. Patient states he drinks enough beer to pass out so he can cope with his chronic pain. SW addressed patient's drinking and provided drug and alcohol resource guide to patient who is not interested in any treatment options at this time. Patient is not interested in attending AA meetings. Patient states he feels he can quit if he wants to. SW asked patient how things are going at home with his and patient states things with Lu are fine, he is only having issues with his landlord. Patient describes his home as a hell hole and that his roommate never picks up after his animals. Patient reports his landlord has given them an eviction notice. SRINI spoke with patient about working with Jey on the housing applications. Patient states Lu has filled these out and they plan to attend the appointment at [facility] on Wednesday. Patient states Lu can drive them to this appointment. Patient states he would like to return home at this time. SRINI contacted Lu who reports she is having a bad day because she is worried about patient. Lu admits to giving patient alcohol to help him cope with his pain issues. Lu confirms that she has completed the housing applications provided by Jey and plans to attend the appointment next week with [facility]. Lu states she cannot hand picker patient at this time because she has herself been drinking. SRINI provided taxi voucher to patient to take him home. SRINI collaborated with NATAN Wetzel about taxi voucher and discharge plan. SRINI contacted AKANKSHA Kolb at [facility] to provide update. Kennedi reports patient has an appointment coming up on 06/09/20. SRINI made report to Adult Protective Services (intake [id number]).
[2020-05-31 16:52] VITALS: BP 143/88; PULSE 67
== END 2020-05-31 16:55 | disposition home or self-care (01) ==
LOC: COL.ER 11:24
PROVIDERS: Emergency Medicine
DX: R52 Pain, unspecified (principal); R56.9 Unspecified convulsions
CPT/HCPCS: J1953; J2060; J2270; J3411; J3475; J7030

== ENCOUNTER 2020-08-09 21:27 | Emergency (ER) | payer MEDICARE, MEDICAID ==
[~2020-08-09] VITALS: Ht 177.8 cm; Wt 72.7 kg
[~2020-08-09 21:27] MED LIST changes: +NATURE'S BLEND100 M2 PO
[2020-08-09 21:33] VITALS: TEMP 98.5
[2020-08-09 22:13] LABS: BASO % 0.5 % (0.0-2.0); EOS # 0.1 (0.0-0.7); EOS % 1.1 % (0-4.0); GRAN # 4.1 (1.4-6.5); GRAN % 52.3 % (42.2-75.2); HEMATOCRIT 44.6 % (42.0-52.0); LYMPH # 2.5 (1.2-3.4); LYMPH % 31.7 % (20.0-51.0); MEAN CELL VOLUME 101 fl (80.0-100.0); MEAN CORPUSCULAR HEMOGLOBIN 34 pg (27.0-31.0); MEAN CORPUSCULAR HGB CONC 34 g/dl (33.0-37.0); MEAN PLATELET VOLUME 11.3 fl (7.4-10.4); MONO # 1.1 (0.1-0.6); MONO % 13.8 % (1.7-9.3); PLATELET COUNT 154 K/mm3 (130-400); RED BLOOD COUNT 4.44 M/mm3 (4.20-5.60)
[2020-08-09 22:18] LABS: ARTERIAL BLD GAS O2 SATURATION 99.3 % (92-100); ARTERIAL BLD GAS TCO2 CT 20.5; ARTERIAL BLOOD GAS BASE EXCESS -4.1 (-2-2); ARTERIAL BLOOD GAS HCO3 19.5 meq/L (22-26); ARTERIAL BLOOD GAS PCO2 32.2 mmHg (35-45)
[2020-08-09 22:19] LABS: ARTERIAL BLOOD GAS PO2 229.6 mmHg (80-100)
[2020-08-09 22:25] LABS: ALANINE AMINOTRANSFERASE 22 U/L (4-49); ALBUMIN 4.1 gm/dL (3.5-5.0); ALKALINE PHOSPHATASE 92 U/L (50-136); ANION GAP 14 mmol/L (7-16); AST,SGOT 50 U/L (15-37); BILIRUBIN,TOTAL 0.4 mg/dL (0.0-1.0); BLOOD UREA NITROGEN 9 mg/dL (9-20); CALCIUM 9.8 mg/dL (8.4-10.2); CARBON DIOXIDE 21 mmol/L (22-30); CHLORIDE 104 mmol/L (98-107); CREATININE, serum 0.77 (0.66-1.25); GLUCOSE 95 mg/dL (74-106); POTASSIUM 3.3 mmol/L (3.4-5.0); SODIUM 140 mmol/L (137-145)
[2020-08-09 22:36] LABS: TROPONIN-I < 0.012 ng/mL (0.000-0.035)
[2020-08-09] MEDS ORDERED: MEDROL 4MG DOSPA4 MG PO (22:46)
[2020-08-09] MEDS ORDERED: LEVAQUIN 5500 MG/TA1 PO (22:46)
[2020-08-09 23:00] VITALS: BP 140/60; PULSE 82
[2020-08-10] MEDS ORDERED: LEVAQUIN 5500 MG/TA1 PO (10:07)
== END 2020-08-09 23:15 | disposition home or self-care (01) ==
LOC: COL.ER 21:27
PROVIDERS: Family Medicine
DX: J44.1 Chronic obstructive pulmonary disease with (acute) exacerbation (principal); K85.90 Acute pancreatitis without necrosis or infection, unspecified; E44.0 Moderate protein-calorie malnutrition; F10.239 Alcohol dependence with withdrawal, unspecified; I10 Essential (primary) hypertension; M54.12 Radiculopathy, cervical region; F11.23 Opioid dependence with withdrawal; G89.29 Other chronic pain; M25.511 Pain in right shoulder; R56.9 Unspecified convulsions; Z20.828 Contact with and (suspected) exposure to other viral communicable diseases; Z79.51 Long term (current) use of inhaled steroids
CPT/HCPCS: J2060; J2920

== ENCOUNTER → 2020-09-19 | Outpatient (CLI) | payer MEDICARE, MEDICAID ==
[~2020-09-19] VITALS: Ht 177.8 cm; Wt 65.3 kg
[~2020-09-19] MED LIST changes: +LEVAQUIN 5500 MG/TA1 PO; +NORCO 325 MG-7.1 TAB PO
[2020-09-19 13:22] VITALS: BP 142/88; PULSE 50
[2020-09-19 13:45] VITALS: BP 129/79; PULSE 49
== END ==
LOC: COL.RAD 13:00
DX: M48.07 Spinal stenosis, lumbosacral region (principal)
CPT/HCPCS: J3301

== ENCOUNTER 2020-11-29 15:13 | Emergency (ER) | payer MEDICARE, MEDICAID ==
[~2020-11-29] VITALS: Ht 177.8 cm; Wt 63.6 kg
[2020-11-29 15:28] VITALS: TEMP 98.1
[2020-11-29] MEDS ORDERED: ZOFRAN ODT4 MG PO (16:29)
[2020-11-29 16:40] VITALS: BP 122/71; PULSE 78
[2021-03-21] MEDS ORDERED: LIPITOR20 MG PO (13:06)
[2021-03-21] MEDS ORDERED: ASPIRIN E.C. 8181 MG PO (13:07)
[2021-03-21] MEDS ORDERED: 00186-0370-20 IH (13:09)
[2021-05-12] MEDS ORDERED: PERCOCET 325 MG1 TAB PO (09:07)
== END 2020-11-29 16:40 | disposition home or self-care (01) ==
LOC: COL.ER 15:13
DX: G89.29 Other chronic pain (principal); M54.9 Dorsalgia, unspecified; F11.23 Opioid dependence with withdrawal; F17.210 Nicotine dependence, cigarettes, uncomplicated

== ENCOUNTER 2020-12-01 07:57 | Emergency (ER) | payer MEDICARE, MEDICAID ==
[~2020-12-01] VITALS: Ht 177.8 cm; Wt 59.1 kg
[~2020-12-01 07:57] MED LIST changes: +ZOFRAN ODT4 MG PO
[2020-12-01 08:27] LABS: BASO # 0.1 (0.0-0.2); BASO % 0.8 % (0.0-2.0); EOS # 0.1 (0.0-0.7); EOS % 1.7 % (0-4.0); GRAN # 2.4 (1.4-6.5); GRAN % 37.1 % (42.2-75.2); HEMATOCRIT 44.7 % (42.0-52.0); HEMOGLOBIN 15.7 g/dl (13.5-18.0); LYMPH % 45.6 % (20.0-51.0); MEAN CELL VOLUME 100 fl (80.0-100.0); MEAN CORPUSCULAR HEMOGLOBIN 35 pg (27.0-31.0); MEAN CORPUSCULAR HGB CONC 35 g/dl (33.0-37.0); MEAN PLATELET VOLUME 11.2 fl (7.4-10.4); MONO # 0.9 (0.1-0.6); MONO % 14.3 % (1.7-9.3); PLATELET COUNT 193 K/mm3 (130-400); RED BLOOD COUNT 4.49 M/mm3 (4.20-5.60); REDCELL DISTRIBUTION WIDTH-CV 14.8 % (11.5-14.5)
[2020-12-01 08:33] LABS: PROTHROMBIN TIME 10.6 SECONDS (9.7-12.8)
[2020-12-01 08:38] LABS: PARTIAL THROMBOPLASTIN TIME 26.8 SECONDS (26.0-37.0)
[2020-12-01 08:47] LABS: ALBUMIN 3.5 gm/dL (3.5-5.0); BILIRUBIN,TOTAL 0.5 mg/dL (0.0-1.0); CREATININE, serum 0.55 (0.66-1.25); POTASSIUM 3.5 mmol/L (3.4-5.0); TOTAL PROTEIN 6.2 gm/dL (6.4-8.2)
[2020-12-01 09:57] LABS: COLLECTION METHOD CLEAN CATCH
[2020-12-01 10:02] LABS: PH 6 (5-8); SQUAMOUS EPITHELIAL None Seen /hpf; URINE APPEARANCE Clear; URINE BACTERIA None Seen /hpf; URINE BILIRUBIN Negative (NEGATIVE); URINE BLOOD Negative (NEGATIVE); URINE COLOR Yellow; URINE GLUCOSE Negative (NEGATIVE); URINE KETONE Negative (NEGATIVE); URINE LEUKOCYTE ESTERASE Negative (NEGATIVE); URINE NITRATE Negative (NEGATIVE); URINE PROTEIN(semi-quant) Negative (NEGATIVE); URINE RBC 0-2 /hpf; URINE UROBILINOGEN Negative (NEGATIVE)
[2020-12-01] MEDS ORDERED: MI-ACID 400-40355 ML PO (10:21)
[2020-12-01] MEDS ORDERED: ZOFRAN ODT4 MG PO (10:21)
[2020-12-01 10:24] LABS: TRICYCLIC ANTIDEPRESS URINE NEGATIVE
[2020-12-01 10:39] VITALS: BP 130/86; PULSE 69
[2021-03-21] MEDS ORDERED: LIPITOR20 MG PO (13:06)
[2021-03-21] MEDS ORDERED: ASPIRIN E.C. 8181 MG PO (13:07)
[2021-03-21] MEDS ORDERED: 00186-0370-20 IH (13:09)
[2021-05-12] MEDS ORDERED: PERCOCET 325 MG1 TAB PO (09:07)
== END 2020-12-01 10:50 | disposition home or self-care (01) ==
LOC: COL.ER 07:57
PROVIDERS: Emergency Medicine
DX: F10.10 Alcohol abuse, uncomplicated (principal); G89.29 Other chronic pain; F11.23 Opioid dependence with withdrawal; Y90.6 Blood alcohol level of 120-199 mg/100 ml
CPT/HCPCS: J2270; J2405; J7040

== ENCOUNTER → 2020-12-09 | Outpatient (CLI) | payer MEDICARE, MEDICAID ==
[~2020-12-09] MED LIST changes: +00186-0370-20 IH; +ASPIRIN E.C. 8181 MG PO; +INFANTS AQU400 IU/ML PO; +LIPITOR20 MG PO; +MI-ACID 400-40355 ML PO; +MS CONTIN 115 MG/TAB PO; +NEURONTIN300 MG/CAP PO; +PERCOCET 325 MG1 TAB PO; +PREDNISONE50 MG PO; +VALIUM 5MG T5 MG/TAB PO; +VITAMIND3 5000 PO; +ZITHROMAX Z PA250 MG PO
== END ==
LOC: COL.RAD 15:22
DX: M51.16 Intervertebral disc disorders with radiculopathy, lumbar region (principal); M47.26 Other spondylosis with radiculopathy, lumbar region

== ENCOUNTER → 2020-12-12 | Outpatient (CLI) | payer MEDICARE, MEDICAID | LOC: COL.RAD 09:09 | DX: M47.812 Spondylosis without myelopathy or radiculopathy, cervical region (principal); M48.02 Spinal stenosis, cervical region ==

== ENCOUNTER 2020-12-16 10:01 | Outpatient (RCR) | payer MEDICARE, MEDICAID ==
[~2020-12-16 10:01] MED LIST changes: -00186-0370-20 IH; -ASPIRIN E.C. 8181 MG PO; -INFANTS AQU400 IU/ML PO; -LIPITOR20 MG PO; -MS CONTIN 115 MG/TAB PO; -NEURONTIN300 MG/CAP PO; -PERCOCET 325 MG1 TAB PO; -PREDNISONE50 MG PO; -VALIUM 5MG T5 MG/TAB PO; -VITAMIND3 5000 PO; -ZITHROMAX Z PA250 MG PO
[2020-12-28] MEDS ORDERED: NEURONTIN300 MG/CAP PO (20:13)
[2020-12-28] MEDS ORDERED: KEPPRA1000 MG PO (20:13)
[2020-12-28] MEDS ORDERED: INFANTS AQU400 IU/ML PO (20:14)
[2021-02-20] MEDS ORDERED: ZOFRAN ODT4 MG PO (01:39)
[2021-02-20] MEDS ORDERED: MS CONTIN 115 MG/TAB PO (01:39)
[2021-02-20] MEDS ORDERED: NORVASC 5MG5 MG/TAB PO (01:39)
[2021-02-20] MEDS ORDERED: NORCO 325 MG-7.1 TAB PO (01:40)
[2021-02-20] MEDS ORDERED: NEURONTIN300 MG/CAP PO (01:40)
[2021-02-20] MEDS ORDERED: VITAMIND3 5000 PO (01:43)
[2021-02-20] MEDS ORDERED: COREG12.5 MG PO (01:44)
[2021-02-21] MEDS ORDERED: ZITHROMAX 250M250 MG PO (10:14)
[2021-02-21] MEDS ORDERED: ANORO IH (11:44)
[2021-03-21] MEDS ORDERED: LIPITOR20 MG PO (13:06)
[2021-03-21] MEDS ORDERED: ASPIRIN E.C. 8181 MG PO (13:07)
[2021-03-21] MEDS ORDERED: 00186-0370-20 IH (13:09)
[2021-05-12] MEDS ORDERED: PERCOCET 325 MG1 TAB PO (09:07)
== END 2021-03-16 ==
LOC: WSC
DX: Z00.8 Encounter for other general examination (principal); M54.16 Radiculopathy, lumbar region; M48.02 Spinal stenosis, cervical region; F10.10 Alcohol abuse, uncomplicated; E55.9 Vitamin D deficiency, unspecified; Z87.891 Personal history of nicotine dependence

== ENCOUNTER 2020-12-28 16:33 | Emergency (ER) | payer MEDICARE, MEDICAID ==
[~2020-12-28] VITALS: Ht 177.8 cm; Wt 65.0 kg
[2020-12-28 16:34] VITALS: TEMP 97.6
[2020-12-28 18:15] LABS: BASO # 0.1 (0.0-0.2); BASO % 0.6 % (0.0-2.0); EOS # 0.1 (0.0-0.7); GRAN # 5.1 (1.4-6.5); GRAN % 58.8 % (42.2-75.2); HEMATOCRIT 42.8 % (42.0-52.0); HEMOGLOBIN 14.8 g/dl (13.5-18.0); LYMPH # 2.3 (1.2-3.4); LYMPH % 26.9 % (20.0-51.0); MEAN CELL VOLUME 102 fl (80.0-100.0); MEAN CORPUSCULAR HEMOGLOBIN 35 pg (27.0-31.0); MEAN CORPUSCULAR HGB CONC 35 g/dl (33.0-37.0); MEAN PLATELET VOLUME 11.5 fl (7.4-10.4); MONO # 1.1 (0.1-0.6); MONO % 12.2 % (1.7-9.3); PLATELET COUNT 235 K/mm3 (130-400); RED BLOOD COUNT 4.21 M/mm3 (4.20-5.60); REDCELL DISTRIBUTION WIDTH-CV 13.6 % (11.5-14.5)
[2020-12-28 18:28] LABS: ALANINE AMINOTRANSFERASE 16 U/L (4-49); ALBUMIN 3.9 gm/dL (3.5-5.0); ALKALINE PHOSPHATASE 92 U/L (50-136); AMYLASE 55 U/L (30-110); ANION GAP 9 mmol/L (7-16); AST,SGOT 39 U/L (15-37); BILIRUBIN,TOTAL 0.6 mg/dL (0.0-1.0); BLOOD UREA NITROGEN 7 mg/dL (9-20); CALCIUM 9.2 mg/dL (8.4-10.2); CARBON DIOXIDE 25 mmol/L (22-30); CHLORIDE 102 mmol/L (98-107); CREATININE, serum 0.48 (0.66-1.25); GLUCOSE 85 mg/dL (74-106); LIPASE 88 U/L (23-300); SODIUM 136 mmol/L (137-145); TOTAL PROTEIN 7.3 gm/dL (6.4-8.2)
[2020-12-28 18:40] LABS: TROPONIN-I < 0.012 ng/mL (0.000-0.035)
[2020-12-28] MEDS ORDERED: KEPPRA1000 MG PO (20:13)
[2020-12-28] MEDS ORDERED: NEURONTIN300 MG/CAP PO (20:13)
[2020-12-28] MEDS ORDERED: INFANTS AQU400 IU/ML PO (20:14)
[2020-12-28 21:26] VITALS: BP 136/86; PULSE 66
[2021-03-21] MEDS ORDERED: LIPITOR20 MG PO (13:06)
[2021-03-21] MEDS ORDERED: ASPIRIN E.C. 8181 MG PO (13:07)
[2021-03-21] MEDS ORDERED: 00186-0370-20 IH (13:09)
[2021-05-12] MEDS ORDERED: PERCOCET 325 MG1 TAB PO (09:07)
== END 2020-12-28 21:32 | disposition home or self-care (01) ==
LOC: COL.ER 16:33
PROVIDERS: Emergency Medicine; Nurse Practitioner Family
DX: G89.29 Other chronic pain (principal); M54.6 Pain in thoracic spine; R19.7 Diarrhea, unspecified; R10.84 Generalized abdominal pain; F17.210 Nicotine dependence, cigarettes, uncomplicated; Z91.14 Patient's other noncompliance with medication regimen; Z98.890 Other specified postprocedural states
CPT/HCPCS: J2270; J2405; J7030

== ENCOUNTER 2021-01-23 06:30 | Emergency (ER) | payer MEDICARE, MEDICAID ==
[~2021-01-23] VITALS: Ht 177.8 cm; Wt 68.2 kg
[~2021-01-23 06:30] MED LIST changes: +INFANTS AQU400 IU/ML PO; +NEURONTIN300 MG/CAP PO
[2021-01-23 06:32] VITALS: TEMP 97.9
[2021-01-23 07:15] LABS: BASO # 0.1 (0.0-0.2); BASO % 0.6 % (0.0-2.0); EOS # 0.1 (0.0-0.7); EOS % 0.7 % (0-4.0); GRAN # 5.2 (1.4-6.5); GRAN % 60.3 % (42.2-75.2); HEMOGLOBIN 16.3 g/dl (13.5-18.0); LYMPH # 2.4 (1.2-3.4); LYMPH % 28.2 % (20.0-51.0); MEAN CELL VOLUME 102 fl (80.0-100.0); MEAN CORPUSCULAR HEMOGLOBIN 35 pg (27.0-31.0); MEAN CORPUSCULAR HGB CONC 35 g/dl (33.0-37.0); MEAN PLATELET VOLUME 11.3 fl (7.4-10.4); MONO # 0.9 (0.1-0.6); MONO % 10.1 % (1.7-9.3); PLATELET COUNT 197 K/mm3 (130-400); RED BLOOD COUNT 4.62 M/mm3 (4.20-5.60); REDCELL DISTRIBUTION WIDTH-CV 13.4 % (11.5-14.5)
[2021-01-23 07:25] LABS: PROTHROMBIN TIME 11.5 SECONDS (9.7-12.8)
[2021-01-23 07:31] LABS: ALBUMIN 4.2 gm/dL (3.5-5.0); BILIRUBIN,TOTAL 0.6 mg/dL (0.0-1.0); CALCIUM 9.7 mg/dL (8.4-10.2); CREATININE, serum 0.63 (0.66-1.25); POTASSIUM 3.7 mmol/L (3.4-5.0); TOTAL PROTEIN 7.6 gm/dL (6.4-8.2)
[2021-01-23 09:27] VITALS: BP 144/86; PULSE 74
[2021-03-21] MEDS ORDERED: LIPITOR20 MG PO (13:06)
[2021-03-21] MEDS ORDERED: ASPIRIN E.C. 8181 MG PO (13:07)
[2021-03-21] MEDS ORDERED: 00186-0370-20 IH (13:09)
[2021-05-12] MEDS ORDERED: PERCOCET 325 MG1 TAB PO (09:07)
== END 2021-01-23 09:28 | disposition home or self-care (01) ==
LOC: COL.ER 06:30
PROVIDERS: Emergency Medicine
DX: G89.29 Other chronic pain (principal); M54.9 Dorsalgia, unspecified; F11.23 Opioid dependence with withdrawal; F17.210 Nicotine dependence, cigarettes, uncomplicated
CPT/HCPCS: J1170

== ENCOUNTER 2021-02-19 22:45 | Inpatient (IN) | payer MEDICARE, MEDICAID ==
[~2021-02-19] VITALS: Ht 177.8 cm; Wt 65.9 kg
[2021-02-19 23:51] LABS: BASO # 0.1 (0.0-0.2); BASO % 0.8 % (0.0-2.0); EOS # 0.2 (0.0-0.7); EOS % 2.7 % (0-4.0); GRAN % 33.4 % (42.2-75.2); HEMATOCRIT 42.1 % (42.0-52.0); HEMOGLOBIN 14.3 g/dl (13.5-18.0); LYMPH # 2.8 (1.2-3.4); LYMPH % 46.8 % (20.0-51.0); MEAN CELL VOLUME 99 fl (80.0-100.0); MEAN CORPUSCULAR HEMOGLOBIN 34 pg (27.0-31.0); MEAN CORPUSCULAR HGB CONC 34 g/dl (33.0-37.0); MEAN PLATELET VOLUME 11.3 fl (7.4-10.4); PLATELET COUNT 196 K/mm3 (130-400); RED BLOOD COUNT 4.24 M/mm3 (4.20-5.60); REDCELL DISTRIBUTION WIDTH-CV 12.8 % (11.5-14.5)
[2021-02-20 00:07] LABS: ALBUMIN 3.6 gm/dL (3.5-5.0); BILIRUBIN,TOTAL 0.2 mg/dL (0.0-1.0); CALCIUM 9.6 mg/dL (8.4-10.2); CREATININE, serum 0.61 (0.66-1.25); POTASSIUM 3.5 mmol/L (3.4-5.0); TOTAL PROTEIN 6.5 gm/dL (6.4-8.2)
[2021-02-20 01:20] LABS: MAGNESIUM 1.9 mg/dL (1.6-2.3); PHOSPHOROUS 3.7 mg/dL (2.5-4.5)
[2021-02-20 01:24] LABS: INR 1.1 (0.8-3.0); PROTHROMBIN TIME 12.4 SECONDS (9.7-12.8)
[2021-02-20 01:27] LABS: PARTIAL THROMBOPLASTIN TIME 27.9 SECONDS (26.0-37.0)
[2021-02-20] MEDS ORDERED: MS CONTIN 115 MG/TAB PO (01:39)
[2021-02-20] MEDS ORDERED: NORVASC 5MG5 MG/TAB PO (01:39)
[2021-02-20] MEDS ORDERED: ZOFRAN ODT4 MG PO (01:39)
[2021-02-20] MEDS ORDERED: NEURONTIN300 MG/CAP PO (01:40)
[2021-02-20] MEDS ORDERED: NORCO 325 MG-7.1 TAB PO (01:40)
[2021-02-20] MEDS ORDERED: VITAMIND3 5000 PO (01:43)
[2021-02-20] MEDS ORDERED: COREG12.5 MG PO (01:44)
[2021-02-20 02:45] LABS: ARTERIAL BLD GAS O2 SATURATION 93.8 % (92-100); ARTERIAL BLD GAS TCO2 CT 33.8; ARTERIAL BLOOD GAS BASE EXCESS 6.3 (-2-2); ARTERIAL BLOOD GAS HCO3 32.3 meq/L (22-26); ARTERIAL BLOOD GAS PO2 71.9 mmHg (80-100); ARTERIAL BLOOD GAS pH 7.42 (7.35-7.45)
[2021-02-20 05:26] LABS: BASO % 0.3 % (0.0-2.0); GRAN # 2.3 (1.4-6.5); GRAN % 67.5 % (42.2-75.2); HEMATOCRIT 44.3 % (42.0-52.0); LYMPH % 29.3 % (20.0-51.0); MEAN CELL VOLUME 101 fl (80.0-100.0); MEAN CORPUSCULAR HEMOGLOBIN 34 pg (27.0-31.0); MEAN CORPUSCULAR HGB CONC 34 g/dl (33.0-37.0); MEAN PLATELET VOLUME 10.8 fl (7.4-10.4); MONO # 0.1 (0.1-0.6); MONO % 2.6 % (1.7-9.3); PLATELET COUNT 203 K/mm3 (130-400); RED BLOOD COUNT 4.41 M/mm3 (4.20-5.60); REDCELL DISTRIBUTION WIDTH-CV 12.9 % (11.5-14.5)
[2021-02-20 05:36] LABS: CALCIUM 9.5 mg/dL (8.4-10.2); CREATININE, serum 0.53 (0.66-1.25); POTASSIUM 4.4 mmol/L (3.4-5.0)
[2021-02-20 10:15] LABS: ARTERIAL BLD GAS O2 SATURATION 91.3 % (92-100); ARTERIAL BLD GAS TCO2 CT 33.9; ARTERIAL BLOOD GAS HCO3 32.4 meq/L (22-26); ARTERIAL BLOOD GAS PCO2 48.2 mmHg (35-45); ARTERIAL BLOOD GAS pH 7.45 (7.35-7.45)
--- NOTE | 2021-02-20 14:31 | NUR ---
Assessment completed, alert/oriented, vital signs stable/ slightly hypotensive at baseline, reports severe chronic neck and back pain from spinal stenosis, home pain med regimen being given, patient has a C-collar for support and orders to wear during the day but patient wears / removes at his own discretion, heart RRR/SR on tele, lungs CTA but diminished throuhgout/ he is very activity intolerant and gets dypnic easily, he is on 3L. o2 via NC at thistime/ he does not wear oxygen at home at baseline, ETOH detox/ CIWA scores 2-3, will conitnue to monitor closely
[2021-02-20 15:42] LABS: COLLECTION METHOD CLEAN CATCH
[2021-02-20 15:50] LABS: PH 7 (5-8); SQUAMOUS EPITHELIAL 0-2 /hpf; URINE APPEARANCE Hazy; URINE BACTERIA None Seen /hpf; URINE BILIRUBIN Negative (NEGATIVE); URINE BLOOD Negative (NEGATIVE); URINE COLOR Yellow; URINE GLUCOSE Negative (NEGATIVE); URINE KETONE Negative (NEGATIVE); URINE LEUKOCYTE ESTERASE Negative (NEGATIVE); URINE NITRATE Negative (NEGATIVE); URINE PROTEIN(semi-quant) Negative (NEGATIVE); URINE RBC 0-2 /hpf; URINE UROBILINOGEN Negative (NEGATIVE); URINE WBC 0-2 /hpf
[2021-02-20 16:49] VITALS: BP 119/68; PULSE 75; TEMP 98.5
[2021-02-20 20:44] VITALS: BP 112/61; PULSE 78; TEMP 97.5
[2021-02-20 22:39] VITALS: BP 119/68; PULSE 69; TEMP 98
[2021-02-20 23:50] VITALS: BP 123/70; PULSE 70; TEMP 97.8
[2021-02-21 02:20] VITALS: BP 138/83; PULSE 65; TEMP 96.5
[2021-02-21 04:27] VITALS: BP 143/87; PULSE 66; TEMP 97.5
--- NOTE | 2021-02-21 04:50 | NUR ---
Patient requests pain medication states generalized pain 10/10; medications given per orders. Patient also states that he is tired of being in the hospital and would like to go home today. No further needs at this time.
[2021-02-21 05:53] VITALS: BP 137/75; PULSE 62
[2021-02-21 07:01] LABS: HEMOGLOBIN 14.8 g/dl (13.5-18.0); MEAN CELL VOLUME 102 fl (80.0-100.0); MEAN CORPUSCULAR HEMOGLOBIN 34 pg (27.0-31.0); MEAN CORPUSCULAR HGB CONC 34 g/dl (33.0-37.0); MEAN PLATELET VOLUME 11.9 fl (7.4-10.4); PLATELET COUNT 220 K/mm3 (130-400); RED BLOOD COUNT 4.33 M/mm3 (4.20-5.60); REDCELL DISTRIBUTION WIDTH-CV 13.2 % (11.5-14.5)
[2021-02-21 07:11] LABS: CALCIUM 9.8 mg/dL (8.4-10.2); CREATININE, serum 0.59 (0.66-1.25)
[2021-02-21 07:51] VITALS: BP 136/75; PULSE 63; TEMP 97.3
--- NOTE | 2021-02-21 09:15 | NUR ---
Shift assessment complete. Pt sitting in bed watching tv. A&Ox4. Heart RRR. Lungs diminished to auscultation. Productive cough noted w/small amount of clear sputum, sputum cup given to pt for sample collection. Report 10/10 pain to RLE, pain meds given per orders. Small tear noted to left wrist, pt reports from pulling off a bandaid yesterday. Denies other needs currently. Continuing to monitor.
--- NOTE | 2021-02-21 10:13 | NUR ---
Initial visit; Patient thanked Powder Expert for looking in on him , offering prayer and God's blessings and keeping him in Powder Expert's prayers.
[2021-02-21] MEDS ORDERED: ZITHROMAX 250M250 MG PO (10:14)
--- NOTE | 2021-02-21 11:15 | NUR ---
Discharge education discussed w/pt and all questions answered. IV to left upper arm removed w/tip intact. Pt escorted out to ride via wheelchair w/all belongings.
--- NOTE | 2021-02-21 11:28 | NUR ---
The patient discharged before this Supervisor Cd Area could complete intake. He is independent.
[2021-02-21] MEDS ORDERED: ANORO IH (11:44)
[2021-03-21] MEDS ORDERED: LIPITOR20 MG PO (13:06)
[2021-03-21] MEDS ORDERED: ASPIRIN E.C. 8181 MG PO (13:07)
[2021-03-21] MEDS ORDERED: 00186-0370-20 IH (13:09)
[2021-05-12] MEDS ORDERED: PERCOCET 325 MG1 TAB PO (09:07)
== END 2021-02-21 11:20 | disposition home or self-care (01) | DRG 189 ==
LOC: COL.ER 22:45 → MEDICAL 02-20 01:01
PROVIDERS: Nurse Practitioner Family; Personal Emergency Response Attendant; Physician Assistant; ADMIT Student in an Organized Health Care Education/Training Program
DX: J96.01 Acute respiratory failure with hypoxia (principal); J44.1 Chronic obstructive pulmonary disease with (acute) exacerbation; E87.1 Hypo-osmolality and hyponatremia; M48.00 Spinal stenosis, site unspecified; G89.29 Other chronic pain; E87.6 Hypokalemia; F10.10 Alcohol abuse, uncomplicated; F17.210 Nicotine dependence, cigarettes, uncomplicated; I10 Essential (primary) hypertension
CPT/HCPCS: 99239; A9284; J0696; J1650; J2060; J2920; J2930; J3411; J7030; J7050

== ENCOUNTER 2021-03-13 05:34 | Emergency (ER) | payer MEDICARE, MEDICAID ==
[~2021-03-13] VITALS: Ht 177.8 cm; Wt 65.5 kg
[~2021-03-13 05:34] MED LIST changes: +MS CONTIN 115 MG/TAB PO; +VITAMIND3 5000 PO
[2021-03-13 05:39] VITALS: TEMP 97.6
[2021-03-13 07:10] VITALS: BP 175/99; PULSE 63
[2021-03-21] MEDS ORDERED: LIPITOR20 MG PO (13:06)
[2021-03-21] MEDS ORDERED: ASPIRIN E.C. 8181 MG PO (13:07)
[2021-03-21] MEDS ORDERED: 00186-0370-20 IH (13:09)
[2021-05-12] MEDS ORDERED: PERCOCET 325 MG1 TAB PO (09:07)
== END 2021-03-13 07:10 | disposition home or self-care (01) ==
LOC: COL.ER 05:34
DX: M54.2 Cervicalgia (principal); G89.29 Other chronic pain; Z87.891 Personal history of nicotine dependence; Z98.890 Other specified postprocedural states

== ENCOUNTER 2021-03-18 11:36 | Emergency (ER) | payer MEDICARE, MEDICAID ==
[~2021-03-18] VITALS: Ht 177.8 cm; Wt 72.7 kg
[2021-03-18 11:38] VITALS: TEMP 98.2
[2021-03-18 12:08] LABS: BASO % 0.8 % (0.0-2.0); EOS # 0.1 (0.0-0.7); EOS % 2.7 % (0-4.0); GRAN # 2.1 (1.4-6.5); GRAN % 40.3 % (42.2-75.2); HEMATOCRIT 41.2 % (42.0-52.0); HEMOGLOBIN 13.5 g/dl (13.5-18.0); LYMPH % 38.3 % (20.0-51.0); MEAN CELL VOLUME 101 fl (80.0-100.0); MEAN CORPUSCULAR HEMOGLOBIN 33 pg (27.0-31.0); MEAN CORPUSCULAR HGB CONC 33 g/dl (33.0-37.0); MEAN PLATELET VOLUME 10.9 fl (7.4-10.4); MONO # 0.9 (0.1-0.6); MONO % 17.7 % (1.7-9.3); PLATELET COUNT 189 K/mm3 (130-400); RED BLOOD COUNT 4.08 M/mm3 (4.20-5.60); REDCELL DISTRIBUTION WIDTH-CV 13.2 % (11.5-14.5)
[2021-03-18 12:25] LABS: ALANINE AMINOTRANSFERASE 16 U/L (4-49); ALBUMIN 3.8 gm/dL (3.5-5.0); ALKALINE PHOSPHATASE 66 U/L (50-136); ANION GAP 4 mmol/L (7-16); AST,SGOT 39 U/L (15-37); BILIRUBIN,TOTAL 0.8 mg/dL (0.0-1.0); BLOOD UREA NITROGEN 8 mg/dL (9-20); CALCIUM 9.7 mg/dL (8.4-10.2); CARBON DIOXIDE 32 mmol/L (22-30); CHLORIDE 101 mmol/L (98-107); CREATININE, serum 0.63 (0.66-1.25); GLUCOSE 153 mg/dL (74-106); SODIUM 137 mmol/L (137-145); TOTAL PROTEIN 6.8 gm/dL (6.4-8.2)
[2021-03-18 12:27] LABS: ALCOHOL(ethanol),MEDICAL < 10 mg/dL
[2021-03-18 15:25] VITALS: BP 157/99; PULSE 60
[2021-03-21] MEDS ORDERED: LIPITOR20 MG PO (13:06)
[2021-03-21] MEDS ORDERED: ASPIRIN E.C. 8181 MG PO (13:07)
[2021-03-21] MEDS ORDERED: 00186-0370-20 IH (13:09)
[2021-05-12] MEDS ORDERED: PERCOCET 325 MG1 TAB PO (09:07)
== END 2021-03-18 15:25 | disposition home or self-care (01) ==
LOC: COL.ER 11:36
PROVIDERS: Emergency Medicine
DX: T14.8XXA Other injury of unspecified body region, initial encounter (principal); S40.211A Abrasion of right shoulder, initial encounter; S59.911A Unspecified injury of right forearm, initial encounter; F17.210 Nicotine dependence, cigarettes, uncomplicated; W18.30XA Fall on same level, unspecified, initial encounter
CPT/HCPCS: J3010; J7120

== ENCOUNTER 2021-03-20 01:08 | Emergency (ER) | payer MEDICARE, MEDICAID ==
[~2021-03-20] VITALS: Ht 172.7 cm; Wt 84.1 kg
[2021-03-20 01:10] VITALS: BP 109/80; PULSE 99; TEMP 100.2
[2021-03-20 02:29] LABS: ARTERIAL BLD GAS O2 SATURATION 95.9 % (92-100); ARTERIAL BLOOD GAS BASE EXCESS -0.4 (-2-2); ARTERIAL BLOOD GAS HCO3 24.5 meq/L (22-26); ARTERIAL BLOOD GAS PCO2 41.2 mmHg (35-45); ARTERIAL BLOOD GAS PO2 82.6 mmHg (80-100); ARTERIAL BLOOD GAS pH 7.39 (7.35-7.45)
[2021-03-20 02:41] LABS: BASO % 0.6 % (0.0-2.0); EOS # 0.2 (0.0-0.7); EOS % 2.3 % (0-4.0); GRAN # 4.6 (1.4-6.5); GRAN % 65.1 % (42.2-75.2); HEMATOCRIT 41.5 % (42.0-52.0); HEMOGLOBIN 13.3 g/dl (13.5-18.0); LYMPH # 1.5 (1.2-3.4); LYMPH % 21.5 % (20.0-51.0); MEAN CELL VOLUME 104 fl (80.0-100.0); MEAN CORPUSCULAR HEMOGLOBIN 33 pg (27.0-31.0); MEAN CORPUSCULAR HGB CONC 32 g/dl (33.0-37.0); MEAN PLATELET VOLUME 10.7 fl (7.4-10.4); MONO # 0.7 (0.1-0.6); MONO % 10.1 % (1.7-9.3); PLATELET COUNT 198 K/mm3 (130-400); RED BLOOD COUNT 3.98 M/mm3 (4.20-5.60); REDCELL DISTRIBUTION WIDTH-CV 13.5 % (11.5-14.5)
[2021-03-20 02:48] LABS: INR 1.1 (0.8-3.0)
[2021-03-20 02:51] LABS: PARTIAL THROMBOPLASTIN TIME 27.5 SECONDS (26.0-37.0)
[2021-03-20 02:53] LABS: ALANINE AMINOTRANSFERASE 16 U/L (4-49); ALBUMIN 3.7 gm/dL (3.5-5.0); ALKALINE PHOSPHATASE 66 U/L (50-136); ANION GAP 3 mmol/L (7-16); AST,SGOT 40 U/L (15-37); BILIRUBIN,TOTAL 0.3 mg/dL (0.0-1.0); BLOOD UREA NITROGEN 9 mg/dL (9-20); CALCIUM 10.1 mg/dL (8.4-10.2); CARBON DIOXIDE 35 mmol/L (22-30); CHLORIDE 99 mmol/L (98-107); CREATININE, serum 1.01 (0.66-1.25); GLUCOSE 128 mg/dL (74-106); POTASSIUM 4.2 mmol/L (3.4-5.0); SODIUM 138 mmol/L (137-145); TOTAL PROTEIN 6.7 gm/dL (6.4-8.2)
[2021-03-20 02:54] LABS: ALCOHOL(ethanol),MEDICAL < 10 mg/dL
[2021-03-20 03:10] LABS: TROPONIN-I 0.511 ng/mL (0.000-0.035)
[2021-03-20 03:35] LABS: ACETAMINOPHEN < 10 ug/mL (10-30)
[2021-03-20 04:08] LABS: COLLECTION METHOD CLEAN CATCH
[2021-03-20 04:26] LABS: PH 5 (5-8); SQUAMOUS EPITHELIAL 0-2 /hpf; TRICYCLIC ANTIDEPRESS URINE NEGATIVE; URINE APPEARANCE Hazy; URINE BACTERIA None Seen /hpf; URINE BILIRUBIN Negative (NEGATIVE); URINE BLOOD Negative (NEGATIVE); URINE COLOR Yellow; URINE GLUCOSE Negative (NEGATIVE); URINE KETONE Negative (NEGATIVE); URINE LEUKOCYTE ESTERASE Negative (NEGATIVE); URINE NITRATE Negative (NEGATIVE); URINE PROTEIN(semi-quant) Negative (NEGATIVE); URINE RBC 0-2 /hpf; URINE WBC 0-2 /hpf
[2021-03-20] MEDS ORDERED: VALIUM 5MG T5 MG/TAB PO (16:46)
[2021-03-21] MEDS ORDERED: LIPITOR20 MG PO (13:06)
[2021-03-21] MEDS ORDERED: ASPIRIN E.C. 8181 MG PO (13:07)
[2021-03-21] MEDS ORDERED: 00186-0370-20 IH (13:09)
[2021-05-12] MEDS ORDERED: PERCOCET 325 MG1 TAB PO (09:07)
== END 2021-03-20 05:17 | disposition left against medical advice (07) ==
LOC: COL.ER 01:08
PROVIDERS: Emergency Medicine
DX: T40.2X1A Poisoning by other opioids, accidental (unintentional), initial encounter (principal); J69.0 Pneumonitis due to inhalation of food and vomit; R79.89 Other specified abnormal findings of blood chemistry; R50.9 Fever, unspecified; R09.02 Hypoxemia; F17.210 Nicotine dependence, cigarettes, uncomplicated
CPT/HCPCS: J0456; J0692; J1100; J7030; J7050

== ENCOUNTER 2021-04-17 09:28 | Emergency (ER) | payer MEDICARE, MEDICAID ==
[~2021-04-17] VITALS: Ht 177.8 cm; Wt 64.1 kg
[~2021-04-17 09:28] MED LIST changes: +00186-0370-20 IH; +ASPIRIN E.C. 8181 MG PO; +LIPITOR20 MG PO; +VALIUM 5MG T5 MG/TAB PO
[2021-04-17 09:34] VITALS: TEMP 97
[2021-04-17 10:00] LABS: BASO % 0.6 % (0.0-2.0); EOS # 0.2 (0.0-0.7); EOS % 2.7 % (0-4.0); GRAN # 2.4 (1.4-6.5); GRAN % 37.5 % (42.2-75.2); HEMATOCRIT 48.8 % (42.0-52.0); LYMPH % 46.6 % (20.0-51.0); MEAN CELL VOLUME 99 fl (80.0-100.0); MEAN CORPUSCULAR HEMOGLOBIN 33 pg (27.0-31.0); MEAN CORPUSCULAR HGB CONC 33 g/dl (33.0-37.0); MEAN PLATELET VOLUME 11.2 fl (7.4-10.4); MONO # 0.8 (0.1-0.6); MONO % 12.3 % (1.7-9.3); PLATELET COUNT 168 K/mm3 (130-400); RED BLOOD COUNT 4.93 M/mm3 (4.20-5.60); REDCELL DISTRIBUTION WIDTH-CV 14.6 % (11.5-14.5)
[2021-04-17 10:13] LABS: ALANINE AMINOTRANSFERASE 17 U/L (4-49); ALBUMIN 4.1 gm/dL (3.5-5.0); ALCOHOL(ethanol),MEDICAL 78 mg/dL; ALKALINE PHOSPHATASE 80 U/L (50-136); ANION GAP 11 mmol/L (7-16); AST,SGOT 67 U/L (15-37); BILIRUBIN,TOTAL 0.5 mg/dL (0.0-1.0); BLOOD UREA NITROGEN 7 mg/dL (9-20); CALCIUM 9.3 mg/dL (8.4-10.2); CARBON DIOXIDE 27 mmol/L (22-30); CHLORIDE 97 mmol/L (98-107); CREATININE, serum 0.62 (0.66-1.25); GLUCOSE 49 mg/dL (74-106); POTASSIUM 4.1 mmol/L (3.4-5.0); SODIUM 135 mmol/L (137-145); TOTAL PROTEIN 7.1 gm/dL (6.4-8.2)
[2021-04-17 10:41] LABS: TROPONIN-I < 0.012 ng/mL (0.000-0.035)
[2021-04-17 14:00] VITALS: BP 121/81; PULSE 85
[2021-05-12] MEDS ORDERED: PERCOCET 325 MG1 TAB PO (09:07)
== END 2021-04-17 14:00 | disposition home or self-care (01) ==
LOC: COL.ER 09:28
PROVIDERS: Emergency Medicine
DX: G89.29 Other chronic pain (principal); M54.9 Dorsalgia, unspecified; M79.601 Pain in right arm; M79.604 Pain in right leg; F10.10 Alcohol abuse, uncomplicated; F10.20 Alcohol dependence, uncomplicated; J44.9 Chronic obstructive pulmonary disease, unspecified; I10 Essential (primary) hypertension; Y90.3 Blood alcohol level of 60-79 mg/100 ml; Z79.51 Long term (current) use of inhaled steroids; Z79.899 Other long term (current) drug therapy
CPT/HCPCS: J2270; J7030

== ENCOUNTER 2021-05-11 06:31 | Emergency (ER) | payer MEDICARE, MEDICAID ==
[~2021-05-11] VITALS: Ht 175.3 cm; Wt 63.6 kg
[2021-05-11 06:45] VITALS: TEMP 96.5
[2021-05-11] MEDS ORDERED: PREDNISONE50 MG PO (07:15)
[2021-05-11] MEDS ORDERED: ZITHROMAX Z PA250 MG PO (07:15)
[2021-05-11 07:32] VITALS: BP 128/56; PULSE 62
[2021-05-12] MEDS ORDERED: PERCOCET 325 MG1 TAB PO (09:07)
== END 2021-05-11 07:35 | disposition home or self-care (01) ==
LOC: COL.ER 06:31
DX: G89.29 Other chronic pain (principal); I10 Essential (primary) hypertension; J44.9 Chronic obstructive pulmonary disease, unspecified; Z79.899 Other long term (current) drug therapy

== ENCOUNTER 2021-06-26 08:57 | Emergency (ER) | payer MEDICARE, MEDICAID ==
[~2021-06-26] VITALS: Ht 175.3 cm; Wt 63.6 kg
[~2021-06-26 08:57] MED LIST changes: +PERCOCET 325 MG1 TAB PO; +PREDNISONE50 MG PO; +ZITHROMAX Z PA250 MG PO
[2021-06-26 10:22] VITALS: BP 151/100; PULSE 65
== END 2021-06-26 10:20 | disposition home or self-care (01) ==
LOC: COL.ER 08:57
DX: G89.29 Other chronic pain (principal); J44.9 Chronic obstructive pulmonary disease, unspecified; F17.210 Nicotine dependence, cigarettes, uncomplicated; Z79.891 Long term (current) use of opiate analgesic; Z79.52 Long term (current) use of systemic steroids; Z79.51 Long term (current) use of inhaled steroids; Z79.899 Other long term (current) drug therapy

== ENCOUNTER 2021-07-07 02:02 | Emergency (ER) | payer MEDICARE, MEDICAID ==
[~2021-07-07] VITALS: Ht 175.3 cm; Wt 60.5 kg
[2021-07-07 02:07] VITALS: PULSE 68; TEMP 97.9
== END 2021-07-07 03:21 | disposition home or self-care (01) ==
LOC: COL.ER 02:02
DX: S09.90XA Unspecified injury of head, initial encounter (principal); M54.9 Dorsalgia, unspecified; G89.29 Other chronic pain; F17.200 Nicotine dependence, unspecified, uncomplicated; Z79.891 Long term (current) use of opiate analgesic; Z79.899 Other long term (current) drug therapy; W01.198A Fall on same level from slipping, tripping and stumbling with subsequent striking against other object, initial encounter

== ENCOUNTER 2021-07-07 15:08 | Emergency (ER) | payer MEDICARE, MEDICAID ==
[~2021-07-07] VITALS: Ht 177.8 cm; Wt 60.0 kg
[2021-07-07 15:28] VITALS: TEMP 97.7
--- NOTE | 2021-07-07 16:53 | NUR ---
Patient sent over by PCP for inpatient alcohol and opioid treatment. Patient verbalizes that he is wanting treatment. side door worker educated the patient and the patients on options and information to [place] [facility] provided. Educated the patient that he would need to be the one to call them and that i am unable to do that for him. states " you do know he's suicidal right?" When asked if they had brought this up with the Dr. she replies "no because we hadn't gotten that far". Patient states that everyday "i want to jump off of a bridge" ER physician and RN notified. Warren dinh requested.
[2021-07-07 17:03] LABS: TRICYCLIC ANTIDEPRESS URINE NEGATIVE
[2021-07-07 17:04] LABS: BASO % 0.5 % (0.0-2.0); EOS # 0.1 K/mm3 (0.0-0.7); EOS % 1.1 % (0-4.0); GRAN # 2.3 K/mm3 (1.4-6.5); GRAN % 40.5 % (42.2-75.2); HEMATOCRIT 45.5 % (42.0-52.0); HEMOGLOBIN 16.2 g/dl (13.5-18.0); LYMPH # 2.5 K/mm3 (1.2-3.4); LYMPH % 45.2 % (20.0-51.0); MEAN CELL VOLUME 96 fl (80.0-100.0); MEAN CORPUSCULAR HEMOGLOBIN 34 pg (27.0-31.0); MEAN CORPUSCULAR HGB CONC 36 g/dl (33.0-37.0); MEAN PLATELET VOLUME 10.7 fl (7.4-10.4); MONO # 0.7 K/mm3 (0.1-0.6); MONO % 12.3 % (1.7-9.3); PLATELET COUNT 157 K/mm3 (130-400); RED BLOOD COUNT 4.74 M/mm3 (4.20-5.60); REDCELL DISTRIBUTION WIDTH-CV 14.3 % (11.5-14.5)
[2021-07-07 17:16] LABS: ALBUMIN 3.8 gm/dL (3.4-4.8); BILIRUBIN,TOTAL 0.6 mg/dL (0.2-1.2); CALCIUM 9.6 mg/dL (8.4-10.2); CREATININE, serum 0.64 mg/dL (0.72-1.25); POTASSIUM 3.5 mmol/L (3.5-4.5); TOTAL PROTEIN 6.9 gm/dL (6.2-8.1)
[2021-07-08 01:35] VITALS: BP 153/106; PULSE 72
--- NOTE | 2021-07-09 09:38 | NUR ---
municipal maintenance worker contacted Sales Project Manager at Dr Jaquez's office and advised of need and information given to patient to contact [facility] for alcohol and drug assessment needed to pursue drug/alcohol treatment with coverage by medicaid. Worker also suggested possible methodone treatment and that medicaid transportation could assist as nearest clinic in [facility].
== END 2021-07-08 01:35 | disposition home or self-care (01) ==
LOC: COL.ER 15:08
PROVIDERS: Student in an Organized Health Care Education/Training Program
DX: F11.23 Opioid dependence with withdrawal (principal); F17.210 Nicotine dependence, cigarettes, uncomplicated

== ENCOUNTER 2021-07-08 15:42 | Emergency (ER) | payer MEDICARE, MEDICAID ==
[~2021-07-08] VITALS: Ht 177.8 cm; Wt 60.0 kg
[2021-07-08 15:58] VITALS: BP 142/91; PULSE 68; TEMP 97.7
== END 2021-07-08 18:00 | disposition left against medical advice (07) ==
LOC: COL.ER 15:42
DX: F11.23 Opioid dependence with withdrawal (principal); R45.851 Suicidal ideations

== ENCOUNTER 2021-07-30 08:06 | Emergency (ER) | payer MEDICARE, MEDICAID ==
[~2021-07-30] VITALS: Ht 175.3 cm; Wt 59.1 kg
[2021-07-30 08:19] VITALS: TEMP 97.7
[2021-07-30 08:39] LABS: BASO # 0.1 K/mm3 (0.0-0.2); BASO % 1.1 % (0.0-2.0); EOS # 0.1 K/mm3 (0.0-0.7); EOS % 2.5 % (0-4.0); GRAN # 1.9 K/mm3 (1.4-6.5); GRAN % 34.4 % (42.2-75.2); HEMATOCRIT 45.9 % (42.0-52.0); HEMOGLOBIN 16.4 g/dl (13.5-18.0); LYMPH # 2.8 K/mm3 (1.2-3.4); LYMPH % 49.2 % (20.0-51.0); MEAN CELL VOLUME 97 fl (80.0-100.0); MEAN CORPUSCULAR HEMOGLOBIN 35 pg (27.0-31.0); MEAN CORPUSCULAR HGB CONC 36 g/dl (33.0-37.0); MEAN PLATELET VOLUME 10.9 fl (7.4-10.4); MONO # 0.7 K/mm3 (0.1-0.6); MONO % 12.4 % (1.7-9.3); PLATELET COUNT 190 K/mm3 (130-400); RED BLOOD COUNT 4.73 M/mm3 (4.20-5.60); REDCELL DISTRIBUTION WIDTH-CV 13.9 % (11.5-14.5)
[2021-07-30 08:54] LABS: ALBUMIN 3.8 gm/dL (3.4-4.8); BILIRUBIN,TOTAL 1.3 mg/dL (0.2-1.2); CALCIUM 9.5 mg/dL (8.4-10.2); CREATININE, serum 0.69 mg/dL (0.72-1.25); TOTAL PROTEIN 6.8 gm/dL (6.2-8.1)
[2021-07-30 11:25] VITALS: BP 139/93; PULSE 67
== END 2021-07-30 10:55 | disposition home or self-care (01) ==
LOC: COL.ER 08:06
PROVIDERS: Personal Emergency Response Attendant
DX: F11.23 Opioid dependence with withdrawal (principal); I10 Essential (primary) hypertension; J44.9 Chronic obstructive pulmonary disease, unspecified; F17.210 Nicotine dependence, cigarettes, uncomplicated; Z79.899 Other long term (current) drug therapy
CPT/HCPCS: J2270; J7030

== ENCOUNTER 2021-07-31 17:24 | Emergency (ER) | payer MEDICARE, MEDICAID ==
[~2021-07-31] VITALS: Ht 175.3 cm; Wt 60.0 kg
[2021-07-31 17:26] VITALS: BP 111/82; PULSE 67; TEMP 97.6
== END 2021-07-31 18:01 | disposition home or self-care (01) ==
LOC: COL.ER 17:24
DX: F11.20 Opioid dependence, uncomplicated (principal); I10 Essential (primary) hypertension; J44.9 Chronic obstructive pulmonary disease, unspecified; Z79.899 Other long term (current) drug therapy

== ENCOUNTER 2021-08-01 17:27 | Emergency (ER) | payer MEDICARE, MEDICAID ==
[~2021-08-01] VITALS: Ht 175.3 cm; Wt 59.1 kg
[2021-08-01 17:31] VITALS: BP 158/94; PULSE 78; TEMP 98.4
== END 2021-08-01 20:30 | disposition home or self-care (01) ==
LOC: COL.ER 17:27
DX: G89.29 Other chronic pain (principal); G40.909 Epilepsy, unspecified, not intractable, without status epilepticus; J45.909 Unspecified asthma, uncomplicated; Z79.899 Other long term (current) drug therapy; Z79.52 Long term (current) use of systemic steroids; Z79.51 Long term (current) use of inhaled steroids
CPT/HCPCS: J1790

== ENCOUNTER 2021-08-03 08:37 | Emergency (ER) | payer MEDICARE, MEDICAID ==
[~2021-08-03] VITALS: Ht 177.8 cm; Wt 60.5 kg
[2021-08-03 09:00] VITALS: TEMP 97.9
[2021-08-03 10:04] LABS: BASO # 0.1 K/mm3 (0.0-0.2); BASO % 0.7 % (0.0-2.0); EOS # 0.1 K/mm3 (0.0-0.7); GRAN # 2.8 K/mm3 (1.4-6.5); GRAN % 41.7 % (42.2-75.2); HEMATOCRIT 42.4 % (42.0-52.0); HEMOGLOBIN 14.9 g/dl (13.5-18.0); LYMPH # 2.8 K/mm3 (1.2-3.4); MEAN CELL VOLUME 99 fl (80.0-100.0); MEAN CORPUSCULAR HEMOGLOBIN 35 pg (27.0-31.0); MEAN CORPUSCULAR HGB CONC 35 g/dl (33.0-37.0); MEAN PLATELET VOLUME 11.3 fl (7.4-10.4); MONO # 1.1 K/mm3 (0.1-0.6); MONO % 15.5 % (1.7-9.3); PLATELET COUNT 158 K/mm3 (130-400); RED BLOOD COUNT 4.28 M/mm3 (4.20-5.60); REDCELL DISTRIBUTION WIDTH-CV 13.8 % (11.5-14.5)
[2021-08-03 10:43] LABS: ALBUMIN 3.6 gm/dL (3.4-4.8); BILIRUBIN,TOTAL 1.4 mg/dL (0.2-1.2); C-REACTIVE PROTEIN 0.1 mg/dL (0.00-0.50); CALCIUM 9.4 mg/dL (8.4-10.2); CREATININE, serum 0.69 mg/dL (0.72-1.25); TOTAL PROTEIN 6.3 gm/dL (6.2-8.1)
[2021-08-03] MEDS ORDERED: PERCOCET 325 MG1 TA2 PO ×3 (10:53→13:39)
[2021-08-03 11:08] VITALS: BP 175/115; PULSE 60
== END 2021-08-03 11:08 | disposition home or self-care (01) ==
LOC: COL.ER 08:37
PROVIDERS: Family Medicine
DX: G89.29 Other chronic pain (principal); F11.20 Opioid dependence, uncomplicated; J44.9 Chronic obstructive pulmonary disease, unspecified; I10 Essential (primary) hypertension; F17.210 Nicotine dependence, cigarettes, uncomplicated; Z79.899 Other long term (current) drug therapy
CPT/HCPCS: J2270; J2405; J7120

== ENCOUNTER 2021-08-05 14:16 | Emergency (ER) | payer MEDICARE, MEDICAID ==
[~2021-08-05] VITALS: Ht 177.8 cm; Wt 60.0 kg
[~2021-08-05 14:16] MED LIST changes: +PERCOCET 325 MG1 TA2 PO
[2021-08-05] MEDS ORDERED: PERCOCET 325 MG1 TAB PO (16:55)
[2021-08-05 17:13] VITALS: BP 138/79; PULSE 88; TEMP 98.1
== END 2021-08-05 17:13 | disposition home or self-care (01) ==
LOC: COL.ER 14:16
DX: G89.29 Other chronic pain (principal); F11.20 Opioid dependence, uncomplicated

== ENCOUNTER → 2021-09-12 | Outpatient (CLI) | payer MEDICARE, MEDICAID | LOC: MHCPAIN 10:05 | DX: M54.50 Low back pain, unspecified (principal); M47.816 Spondylosis without myelopathy or radiculopathy, lumbar region; M53.3 Sacrococcygeal disorders, not elsewhere classified; Z98.1 Arthrodesis status ==

== ENCOUNTER → 2021-10-06 | Outpatient (CLI) | payer MEDICARE, MEDICAID | LOC: COL.RAD 16:48 | DX: M16.0 Bilateral primary osteoarthritis of hip (principal); M17.0 Bilateral primary osteoarthritis of knee ==

== ENCOUNTER → 2021-10-13 | Outpatient (CLI) | payer MEDICARE, MEDICAID | LOC: MHCPAIN 10:34 | DX: M47.896 Other spondylosis, lumbar region (principal); M54.16 Radiculopathy, lumbar region; M53.3 Sacrococcygeal disorders, not elsewhere classified ==

== ENCOUNTER → 2021-11-18 | Outpatient (CLI) | payer MEDICARE, MEDICAID | LOC: MHCPAIN 14:28 | DX: M47.896 Other spondylosis, lumbar region (principal); M54.16 Radiculopathy, lumbar region; M53.3 Sacrococcygeal disorders, not elsewhere classified; M79.2 Neuralgia and neuritis, unspecified | CPT/HCPCS: G0463 ==

== ENCOUNTER 2021-12-11 07:49 | Emergency (ER) | payer MEDICARE, MEDICAID ==
[~2021-12-11] VITALS: Ht 177.8 cm; Wt 63.6 kg
[2021-12-11 08:42] LABS: BASO % 0.7 % (0.0-2.0); EOS # 0.1 K/mm3 (0.0-0.7); EOS % 1.5 % (0.0-4.0); GRAN # 2.3 K/mm3 (1.4-6.5); GRAN % 39.7 % (42.2-75.2); HEMATOCRIT 45.9 % (42.0-52.0); HEMOGLOBIN 16.7 g/dl (13.5-18.0); LYMPH # 2.6 K/mm3 (1.2-3.4); LYMPH % 45.3 % (20.0-51.0); MEAN CELL VOLUME 94 fl (80.0-100.0); MEAN CORPUSCULAR HEMOGLOBIN 34 pg (27-31); MEAN CORPUSCULAR HGB CONC 36 g/dl (33.0-37.0); MEAN PLATELET VOLUME 11.3 fl (7.4-10.4); MONO # 0.7 K/mm3 (0.1-0.6); MONO % 12.6 % (1.7-9.3); PLATELET COUNT 112 K/mm3 (130-400); RED BLOOD COUNT 4.89 M/mm3 (4.20-5.60); REDCELL DISTRIBUTION WIDTH-CV 13.4 % (11.5-14.5)
[2021-12-11 08:51] LABS: ALBUMIN 4.4 gm/dL (3.4-4.8); BILIRUBIN,TOTAL 1.4 mg/dL (0.2-1.2); C-REACTIVE PROTEIN 0.72 mg/dL (0.00-0.50); CALCIUM 9.3 mg/dL (8.4-10.2); CREATININE, serum 0.66 mg/dL (0.72-1.25); TOTAL PROTEIN 7.2 gm/dL (6.2-8.1)
[2021-12-11] MEDS ORDERED: PERCOCET 325 MG1 TAB PO (10:12)
[2021-12-11 10:13] LABS: COLLECTION METHOD CLEAN CATCH
[2021-12-11 10:20] LABS: PH 6 (5-8); SQUAMOUS EPITHELIAL None Seen /hpf (0-10); URINE APPEARANCE Clear (CLEAR/HAZY); URINE BACTERIA None Seen /hpf (NONE SEEN); URINE BILIRUBIN Negative (NEGATIVE); URINE BLOOD Negative (NEGATIVE); URINE COLOR Yellow (YELLOW); URINE GLUCOSE Negative (NEGATIVE); URINE KETONE Negative (NEGATIVE); URINE LEUKOCYTE ESTERASE Negative (NEGATIVE); URINE NITRATE Negative (NEGATIVE); URINE PROTEIN(semi-quant) Negative (NEGATIVE); URINE RBC 0-2 /hpf (0-2); URINE UROBILINOGEN Negative (NEGATIVE)
[2021-12-11 10:25] VITALS: BP 147/95; PULSE 60
== END 2021-12-11 10:36 | disposition home or self-care (01) ==
LOC: COL.ER 07:49
PROVIDERS: Family Medicine
DX: F11.20 Opioid dependence, uncomplicated (principal); G89.29 Other chronic pain; F17.200 Nicotine dependence, unspecified, uncomplicated; Y90.6 Blood alcohol level of 120-199 mg/100 ml
CPT/HCPCS: J2405; J7120

== ENCOUNTER → 2021-12-15 | Outpatient (CLI) | payer MEDICARE, MEDICAID | LOC: MHCPAIN 14:10 | DX: M47.816 Spondylosis without myelopathy or radiculopathy, lumbar region (principal); M54.50 Low back pain, unspecified; M62.838 Other muscle spasm ==

== ENCOUNTER 2021-12-17 23:27 | Emergency (ER) | payer MEDICARE, MEDICAID ==
[~2021-12-17] VITALS: Ht 180.3 cm; Wt 68.2 kg
[2021-12-17 23:29] VITALS: BP 141/81; PULSE 78; TEMP 98.2
[2021-12-18] LABS: BASO % 0.8 % (0.0-2.0); EOS # 0.1 K/mm3 (0.0-0.7); EOS % 2.5 % (0.0-4.0); GRAN # 1.3 K/mm3 (1.4-6.5); GRAN % 27.2 % (42.2-75.2); HEMATOCRIT 44.1 % (42.0-52.0); HEMOGLOBIN 15.9 g/dl (13.5-18.0); LYMPH # 2.6 K/mm3 (1.2-3.4); LYMPH % 53.1 % (20.0-51.0); MEAN CELL VOLUME 95 fl (80.0-100.0); MEAN CORPUSCULAR HEMOGLOBIN 34 pg (27-31); MEAN CORPUSCULAR HGB CONC 36 g/dl (33.0-37.0); MEAN PLATELET VOLUME 10.5 fl (7.4-10.4); MONO # 0.8 K/mm3 (0.1-0.6); MONO % 16.2 % (1.7-9.3); PLATELET COUNT 119 K/mm3 (130-400); RED BLOOD COUNT 4.65 M/mm3 (4.20-5.60); REDCELL DISTRIBUTION WIDTH-CV 13.9 % (11.5-14.5)
[2021-12-18 00:15] LABS: BILIRUBIN,TOTAL 1.1 mg/dL (0.2-1.2); CALCIUM 9.3 mg/dL (8.4-10.2); CREATININE, serum 0.69 mg/dL (0.72-1.25); POTASSIUM 3.8 mmol/L (3.5-4.5); TOTAL PROTEIN 6.4 gm/dL (6.2-8.1)
== END 2021-12-18 00:10 | disposition left against medical advice (07) ==
LOC: COL.ER 23:27
PROVIDERS: Personal Emergency Response Attendant
DX: M54.9 Dorsalgia, unspecified (principal); G89.29 Other chronic pain; F11.10 Opioid abuse, uncomplicated; F10.20 Alcohol dependence, uncomplicated; Z76.5 Malingerer [conscious simulation]; Z87.39 Personal history of other diseases of the musculoskeletal system and connective tissue; Y90.6 Blood alcohol level of 120-199 mg/100 ml; Z88.6 Allergy status to analgesic agent

== ENCOUNTER 2021-12-25 07:49 | Emergency (ER) | payer MEDICARE, MEDICAID ==
[~2021-12-25] VITALS: Ht 177.8 cm; Wt 63.6 kg
[2021-12-25 07:52] VITALS: TEMP 96.9
[2021-12-25 08:50] VITALS: BP 115/97; PULSE 64
== END 2021-12-25 08:52 | disposition home or self-care (01) ==
LOC: COL.ER 07:49
DX: M54.50 Low back pain, unspecified (principal); G89.29 Other chronic pain; M54.2 Cervicalgia; F17.210 Nicotine dependence, cigarettes, uncomplicated; Z87.39 Personal history of other diseases of the musculoskeletal system and connective tissue; Z98.1 Arthrodesis status; Z91.14 Patient's other noncompliance with medication regimen; Z98.890 Other specified postprocedural states

== ENCOUNTER 2022-03-03 13:26 | Emergency (ER) | payer MEDICARE, MEDICAID ==
[~2022-03-03] VITALS: Ht 177.8 cm; Wt 54.5 kg
[2022-03-03 13:29] VITALS: TEMP 97.6
[2022-03-03 13:58] LABS: BASO % 0.8 % (0.0-2.0); EOS # 0.1 K/mm3 (0.0-0.7); EOS % 1.6 % (0.0-4.0); GRAN # 1.6 K/mm3 (1.4-6.5); HEMATOCRIT 40.9 % (42.0-52.0); HEMOGLOBIN 14.9 g/dl (13.5-18.0); LYMPH # 2.7 K/mm3 (1.2-3.4); LYMPH % 53.3 % (20.0-51.0); MEAN CELL VOLUME 100 fl (80.0-100.0); MEAN CORPUSCULAR HEMOGLOBIN 36 pg (27-31); MEAN CORPUSCULAR HGB CONC 36 g/dl (33.0-37.0); MEAN PLATELET VOLUME 11.3 fl (7.4-10.4); MONO # 0.7 K/mm3 (0.1-0.6); MONO % 12.9 % (1.7-9.3); PLATELET COUNT 159 K/mm3 (130-400); REDCELL DISTRIBUTION WIDTH-CV 13.6 % (11.5-14.5)
[2022-03-03 14:19] LABS: ALBUMIN 3.9 gm/dL (3.4-4.8); BILIRUBIN,TOTAL 0.9 mg/dL (0.2-1.2); C-REACTIVE PROTEIN 0.31 mg/dL (0.00-0.50); CALCIUM 9.7 mg/dL (8.4-10.2); CREATININE, serum 0.67 mg/dL (0.72-1.25); POTASSIUM 4.4 mmol/L (3.5-4.5); TOTAL PROTEIN 6.9 gm/dL (6.2-8.1)
[2022-03-03 15:53] VITALS: BP 153/99; PULSE 59
== END 2022-03-03 16:06 | disposition home or self-care (01) ==
LOC: COL.ER 13:26
PROVIDERS: Family Medicine
DX: M54.9 Dorsalgia, unspecified (principal); G89.29 Other chronic pain; Z87.39 Personal history of other diseases of the musculoskeletal system and connective tissue; Z20.822 Contact with and (suspected) exposure to COVID-19
CPT/HCPCS: C9113; J2405; J3010; J7120; Q9967

== ENCOUNTER 2022-03-07 15:29 | Inpatient (IN) | payer MEDICARE, MEDICAID ==
[~2022-03-07] VITALS: Ht 177.8 cm; Wt 58.8 kg
[2022-03-07 16:07] LABS: BASO # 0.1 K/mm3 (0.0-0.2); BASO % 0.6 % (0.0-2.0); EOS # 0.2 K/mm3 (0.0-0.7); EOS % 2.2 % (0.0-4.0); GRAN # 4.7 K/mm3 (1.4-6.5); GRAN % 57.6 % (42.2-75.2); HEMATOCRIT 40.9 % (42.0-52.0); HEMOGLOBIN 14.3 g/dl (13.5-18.0); LYMPH # 2.1 K/mm3 (1.2-3.4); LYMPH % 26.1 % (20.0-51.0); MEAN CELL VOLUME 101 fl (80.0-100.0); MEAN CORPUSCULAR HEMOGLOBIN 35 pg (27-31); MEAN CORPUSCULAR HGB CONC 35 g/dl (33.0-37.0); MEAN PLATELET VOLUME 11.1 fl (7.4-10.4); MONO # 1.1 K/mm3 (0.1-0.6); MONO % 13.3 % (1.7-9.3); PLATELET COUNT 136 K/mm3 (130-400); RED BLOOD COUNT 4.04 M/mm3 (4.20-5.60); REDCELL DISTRIBUTION WIDTH-CV 13.6 % (11.5-14.5)
[2022-03-07 16:13] LABS: PROTHROMBIN TIME 11.9 SECONDS (9.7-12.8)
[2022-03-07 16:16] LABS: PARTIAL THROMBOPLASTIN TIME 28.5 SECONDS (26.0-37.0)
[2022-03-07 16:27] LABS: ALANINE AMINOTRANSFERASE 11 U/L (0-55); ALKALINE PHOSPHATASE 69 U/L (40-150); ANION GAP 18 mmol/L (7-16); AST,SGOT 32 U/L (5-34); BILIRUBIN,TOTAL 1.1 mg/dL (0.2-1.2); BLOOD UREA NITROGEN 5 mg/dL (8-26); C-REACTIVE PROTEIN 11.97 mg/dL (0.00-0.50); CALCIUM 9.3 mg/dL (8.4-10.2); CARBON DIOXIDE 26 mmol/L (23-31); CHLORIDE 90 mmol/L (98-107); CREATININE, serum 0.61 mg/dL (0.72-1.25); GLUCOSE 41 mg/dL (70-99); POTASSIUM 3.7 mmol/L (3.5-4.5); SODIUM 134 mmol/L (136-145); TOTAL PROTEIN 6.7 gm/dL (6.2-8.1)
[2022-03-07 16:34] LABS: TROPONIN-I < 0.010 ng/mL (0.00-0.033)
[2022-03-07 20:11] VITALS: BP 133/98; PULSE 63; TEMP 97.6
[2022-03-07 23:00] VITALS: BP 149/82; PULSE 62
[2022-03-08] VITALS (13 sets, daily range): BP systolic 109–157; BP diastolic 66–109; PULSE 57–86; TEMP 97.5–98.5
[2022-03-08] MEDS ORDERED: ZOFRAN ODT4 MG PO (01:04)
[2022-03-08] MEDS ORDERED: PRILOSEC 20MG20 MG PO (01:05)
[2022-03-08] MEDS ORDERED: ALBUTEROL0.83 MG/ML IH (01:06)
--- NOTE | 2022-03-08 01:22 | NUR ---
Pt brought up from ED around 1999. Pt alert and oriented, pleasant, follows commands. Reports pain in his abdomen. States he has been having loose stools. Reports he also has chronic pain d/t a hx surguries. Pt has requested pain medication this evening. Prn morphine and prn percocet have been administered x2. Pt's reports to me over the phone that the pt takes his oxycodone at home very frequently and it "does not touch his pain". Pt and pt's also states that he is a daily drinker. Pt has been placed on alcohol detox protocol and VS will be monitored q2hr. Prn ativan has been administered x1 so far this evening for a CIWA score of 6. Score has varied between 3-6 this evening. Pt VS stable. BP running more elevated. HR NSR. Pt placed on 2L NC in ED for desaturation. Pt remains on 2L currently, satting WNL. Pt did have 1 loose stool this evening so far. Continues to report pain even after medication is administered. Pt tolerating fat controlled diet. Pt has asked for food multiple times this evening stating "im very hungry". IV fluids continue. Pt tolerating PO. No significant skin issues noted. Skin is dry and cool. Pt's lungs sound course with some possible rhonchi. No cough noted. Admission intake and admission assessment completed. Allergies confirmed. Medication reviewed over the phone with the pt's and completed. COVID and infectious disease assessments completed. Pt appears to be restless, but is calm. Falls preventions in place. Pt does not report any questions at this time, will continue to monitor.
--- NOTE | 2022-03-08 05:46 | NUR ---
No adverse events overnight. Pt continues to report pain and frequently calls out for pain medication around 1 hour or so after recieving it. Pt reports pain as "all over" and explains his hx surgies and chronic pain. Does not appear to have abdominal pain this morning. Continued to administer prn pain medication per orders overnight. Pt asks after recieving pain medication what time the next dose can be administered. Pt asked for snacks multiple times overnight. Educated on low-fat diet and its r/t the pancreatitis. 1 loose stool overnight. Adequate urine output. VS stable. Afebrile. No nausea/vomiting overnight. Detox protocol enforced. Pt mainly scored a 3, but did score a 6 one time. Prn ativan administered x1 overnight. Pt does not report any questions at this time, will continue to monitor.
[2022-03-08 06:43] LABS: BASO % 0.7 % (0.0-2.0); EOS # 0.1 K/mm3 (0.0-0.7); EOS % 2.4 % (0.0-4.0); GRAN # 2.7 K/mm3 (1.4-6.5); GRAN % 49.6 % (42.2-75.2); HEMATOCRIT 37.3 % (42.0-52.0); HEMOGLOBIN 12.9 g/dl (13.5-18.0); LYMPH # 1.7 K/mm3 (1.2-3.4); LYMPH % 30.5 % (20.0-51.0); MEAN CELL VOLUME 103 fl (80.0-100.0); MEAN CORPUSCULAR HEMOGLOBIN 36 pg (27-31); MEAN CORPUSCULAR HGB CONC 35 g/dl (33.0-37.0); MONO # 0.9 K/mm3 (0.1-0.6); MONO % 16.4 % (1.7-9.3); PLATELET COUNT 117 K/mm3 (130-400); RED BLOOD COUNT 3.62 M/mm3 (4.20-5.60); REDCELL DISTRIBUTION WIDTH-CV 13.5 % (11.5-14.5)
[2022-03-08 06:59] LABS: CALCIUM 8.8 mg/dL (8.4-10.2); CREATININE, serum 0.65 mg/dL (0.72-1.25); MAGNESIUM 1.9 mg/dL (1.6-2.6); POTASSIUM 3.8 mmol/L (3.5-4.5)
--- NOTE | 2022-03-08 08:30 | NUR ---
PT SITTING UP IN BED ON 2 LIT VIA NC. PT STATES THAT HIS PAIN IS A 10 OUT OF 10. STATES PAIN IS IN HIS BACK, NECK AND ABD. PRN PAIN MEDICATION WAS GIVEN PER EMAR. PT STATES NO OTHER NEEDS AT THIS TIME. CALL LIGHT IS WITHIN REACH.
--- NOTE | 2022-03-08 12:51 | NUR ---
Can Sorter met with patient for intake assessment/discharge planning: Patient presents alert and oriented, but responds slowly. He states he is experiencing pain, and "I almost her two years ago." He explains he was at the ER recently and returned to home before this hospital admission due to pancreatitis. He minimizes his alcohol and marijuana intake, according to medical record, stating he has had no alcohol "in quite a while" and he smokes a "pencil thin joint, "I take my time with it." He does verbalize an understanding that his substance use is likely related to his physical health, indicating "I'm trying to quit. I"m gonna quit. I have to quit because I don't want to ." He reports the longest he has remained free of alcohol use was 4 days prior to relapse, and he indicates he has had no CHRISTOPHER treatment before. He states he grew up on in [place], [place], living [place] area and substances have always been a part of his life. He expresses no interest in substance use treatment recommendations and/or self-help support groups including AA at discharge, "There's only two ways to go, to use it or just stop. I have a headstart. I can do it." He plans to stop alcohol and marijuana use cold hammond with no support at discharge noting he will be detoxed in the hospital. He states he lives with his spouse Lu ([phone]) and two cats in a trailer in [place], [place]. His primary care physician is Dr. Galen Jaquez; he obtains his medications at [facility] with no dificulties. He has lost 30 pounds recently, and he is fearful at home of falling; he does ambulate with a walker and a motorized scooter. He has a toilet riser in each bathroom as well as a shower chair and uses a nebulizer. He is largely independent in his ADLs/IADLs but his spouse does assist him, as needed. He can drive, but chooses not to "until this is all straightened out." He threw away his dentures because they were immediately ill-fitting. Patient has no DPOA-HC or Advanced Directive in his medical record, but he states belief he has one that indicates his daughter Marline Villatoro (no telephone contact available) as his DPOA-HC; his spouse is his next-of-kin. Patient reports no interest in in-home HH and/or SNF placement, and he wants to go home. He again declines CHRISTOPHER treatment recommendations. Patient states no further questions/concerns at this time. Social Work to continue to follow. *Discharge plan: to home pending PT/OT and medical recommendations*
--- NOTE | 2022-03-08 18:16 | NUR ---
PT SITTING UP IN BED ON 1 LIT VIA NC. PT STATES THAT HIS PAIN IS A 10 OUT OF 10 IN HIS ABD, BACK AND NECK. AT BEDSIDE. PT STATES NO OTHER NEEDS/CONCERNS AT THIS TIME. CALL LIGHT IS WITHIN REACH.
[2022-03-09] VITALS (7 sets, daily range): BP systolic 155–175; BP diastolic 87–97; PULSE 52–67; TEMP 97.8–98.4
[2022-03-09] MEDS ORDERED: ROBAXIN 50500 MG/TAB PO (05:47)
[2022-03-09] MEDS ORDERED: VALIUM 5MG T5 MG/TAB (05:48)
--- NOTE | 2022-03-09 06:07 | NUR ---
pt has been able to sleep after pain meds and ativan, CIWA scores were 6-7, down to 2 this am. able to eat a sandwich and pudding around midnight, stayed the noc, pt is less stressed and anxious when she is here. IVF infusing per PIV @ 125cc/hr, voiding using urinal, up to restroom with assisting, reports having a soft bm x1.
--- NOTE | 2022-03-09 08:30 | NUR ---
Patient is resting in bed, alert and oriented x 4, VSS, with HTN 150'S. Some tremors and anxiety. Removed the 1l O2. 96% o2 sat. Receiving 125 ml/hr NS. Assessment completed, meds provided. No other needs at this time. Call light within reach.
--- NOTE | 2022-03-09 10:08 | NUR ---
Initial visit; Patient thanked Associate Professor Of Media Arts for looking in on him and offering God's blessings.
--- NOTE | 2022-03-09 19:09 | NUR ---
Patient complains about pain medications. PRN provided as allowed. He states they do not give him relief. Patient is aware of NPO at midnight and endoscopy in the morning. Consent signed. Report given to kyree RN.
[2022-03-10] VITALS (9 sets, daily range): BP systolic 123–171; BP diastolic 77–97; PULSE 50–90; TEMP 97.7–98.5
--- NOTE | 2022-03-10 07:19 | NUR ---
PT HAD EPISODE OF CONFUSION THIS AM, WOKE UP AROUND 0440, PULLED IV OUT, WAS CONFUSED ABOUT WHERE HE WAS AND WHY HE WAS HERE, PT WAS ABLE TO RECOGNIZE MYSELF HIS NURSE, HELPED HIM CALL HIS , AND SHE HELPED REASSURE HIM, IV RESTARTED IN RFA, IVF INFUSING @75 CC/HR, NPO FOR EGD TODAY, CIWA SCORES 2-6, ATIVAN GIVEN, SEE EMAR.
--- NOTE | 2022-03-10 07:32 | NUR ---
Patient is taken to his procedure.
--- NOTE | 2022-03-10 08:26 | NUR ---
Patient is back from endoscopy.
--- NOTE | 2022-03-10 19:03 | NUR ---
Patient has been eating better. He continues complaining of paina, getting his schedule pain medication. Continues getting his fluids as ordered. Report given to night RN.
--- NOTE | 2022-03-10 20:54 | NUR ---
TX GIVEN VIA MOUTHPIECE, TOLERATED WELL. FAMILY X 1 AT BEDSIDE.
[2022-03-11 02:00] VITALS: BP 134/91; BP 174/91; PULSE 74; TEMP 98
[2022-03-11 07:10] VITALS: BP 150/94; PULSE 62; TEMP 97.4
[2022-03-11] MEDS ORDERED: FOLIC ACID 11 MG/TA1 PO (09:00)
[2022-03-11] MEDS ORDERED: NATURE'S BLEND100 M2 PO (09:00)
[2022-03-11] MEDS ORDERED: NORVASC 5MG5 MG/TAB PO (09:02)
[2022-03-11] MEDS ORDERED: PRINIVIL5 MG PO (09:02)
--- NOTE | 2022-03-11 09:02 | NUR ---
Patient is resting in bed, alert and oriented, states his pain is general but continues specially in his stomach. Some hypertension, resstarted 0.5L O2 NC since saturation are 88%at rest. Assessment completed, meds provided. No other needs at this time. Call light within reach.
[2022-03-11] MEDS ORDERED: NICODERM C21 MG/PATC TD (09:05)
[2022-03-11] MEDS ORDERED: PERCOCET 325 MG1 TAB PO (09:07)
--- NOTE | 2022-03-11 11:12 | NUR ---
SRINI collaborated with Veronica and it is unknown what the etiology of his condition is an may need a possible biopsy of his kidney/transplant later. Patient confirms that he has a FAA for the hospital and the SRINI provided him with [employer] application in Urdu to fill out.
--- NOTE | 2022-03-11 12:55 | NUR ---
dye house worker met with patient and provided him the MCR.IM form along with education. Patient verbalized his agreement with discharge plan to return home today. Patient's signed original placed in the patient's chart and copy provided back to the patient. Sw also provided the patient with information on the local AA meeting. Alcohol resource guide provided to the patient and educated him that is he didn't feel like AA was going to work, he could look at one of the private agencies to seek help from. Patient is grateful stating that this has scared him and is wanting to seek help. Patient is planning on returning home later today. Discharge plan: Home
--- NOTE | 2022-03-11 13:12 | NUR ---
Pt was provided with discharge information, all questions anserred. IV access was discontinued.
== END 2022-03-11 13:30 | disposition home or self-care (01) | DRG 438 ==
LOC: COL.ER 15:29 → MEDICAL 18:18
PROVIDERS: Family Medicine; Internal Medicine Gastroenterology; Student in an Organized Health Care Education/Training Program; ADMIT Internal Medicine
PROC: 0DB68ZX Excision of Stomach, Via Natural or Artificial Opening Endoscopic, Diagnostic (ICD-10-PCS; 2022-03-10)
PROC: 0DB88ZX Excision of Small Intestine, Via Natural or Artificial Opening Endoscopic, Diagnostic (ICD-10-PCS; 2022-03-10)
PROC: 0DB98ZX Excision of Duodenum, Via Natural or Artificial Opening Endoscopic, Diagnostic (ICD-10-PCS; principal; 2022-03-10 08:00)
DX: K85.90 Acute pancreatitis without necrosis or infection, unspecified (principal); E43 Unspecified severe protein-calorie malnutrition; J96.01 Acute respiratory failure with hypoxia; J44.1 Chronic obstructive pulmonary disease with (acute) exacerbation; Z68.1 Body mass index [BMI] 19.9 or less, adult; A09 Infectious gastroenteritis and colitis, unspecified; K55.9 Vascular disorder of intestine, unspecified; G89.29 Other chronic pain; M54.9 Dorsalgia, unspecified; I10 Essential (primary) hypertension; J44.9 Chronic obstructive pulmonary disease, unspecified; Z20.822 Contact with and (suspected) exposure to COVID-19; F10.10 Alcohol abuse, uncomplicated; F17.210 Nicotine dependence, cigarettes, uncomplicated; F12.90 Cannabis use, unspecified, uncomplicated; M48.00 Spinal stenosis, site unspecified; G40.909 Epilepsy, unspecified, not intractable, without status epilepticus; K29.50 Unspecified chronic gastritis without bleeding; K21.9 Gastro-esophageal reflux disease without esophagitis; F41.9 Anxiety disorder, unspecified; M19.90 Unspecified osteoarthritis, unspecified site; B19.20 Unspecified viral hepatitis C without hepatic coma; K83.9 Disease of biliary tract, unspecified; K86.89 Other specified diseases of pancreas; K44.9 Diaphragmatic hernia without obstruction or gangrene; R10.9 Unspecified abdominal pain; K27.9 Peptic ulcer, site unspecified, unspecified as acute or chronic, without hemorrhage or perforation; Z79.82 Long term (current) use of aspirin; Z88.6 Allergy status to analgesic agent; Z23 Encounter for immunization
CPT/HCPCS: OP; 99232-AI; 99233-AI; 99239; A9284; J1650; J2060; J2270; J2405; J2704; J7030; J7120; Q9967

== ENCOUNTER 2022-03-24 09:31 | Emergency (ER) | payer MEDICARE, MEDICAID ==
[~2022-03-24] VITALS: Ht 177.8 cm; Wt 55.0 kg
[~2022-03-24 09:31] MED LIST changes: +ALBUTEROL0.83 MG/ML IH; +NICODERM C21 MG/PATC TD; +PRILOSEC 20MG20 MG PO; +PRINIVIL5 MG PO; +ROBAXIN 50500 MG/TAB PO; +VALIUM 5MG T5 MG/TAB
[2022-03-24 10:18] LABS: BASO # 0.1 K/mm3 (0.0-0.2); EOS # 0.1 K/mm3 (0.0-0.7); EOS % 2.4 % (0.0-4.0); GRAN # 2.1 K/mm3 (1.4-6.5); HEMATOCRIT 45.2 % (42.0-52.0); HEMOGLOBIN 15.1 g/dl (13.5-18.0); LYMPH # 2.9 K/mm3 (1.2-3.4); MEAN CELL VOLUME 105 fl (80.0-100.0); MEAN CORPUSCULAR HEMOGLOBIN 35 pg (27-31); MEAN CORPUSCULAR HGB CONC 33 g/dl (33.0-37.0); MEAN PLATELET VOLUME 11.3 fl (7.4-10.4); MONO # 0.6 K/mm3 (0.1-0.6); MONO % 10.3 % (1.7-9.3); PLATELET COUNT 221 K/mm3 (130-400); RED BLOOD COUNT 4.29 M/mm3 (4.20-5.60); REDCELL DISTRIBUTION WIDTH-CV 13.2 % (11.5-14.5)
[2022-03-24 11:04] LABS: ALBUMIN 3.5 gm/dL (3.4-4.8); BILIRUBIN,TOTAL 0.5 mg/dL (0.2-1.2); C-REACTIVE PROTEIN 0.57 mg/dL (0.00-0.50); CALCIUM 9.2 mg/dL (8.4-10.2); CREATININE, serum 0.76 mg/dL (0.72-1.25); POTASSIUM 4.6 mmol/L (3.5-4.5); TOTAL PROTEIN 6.2 gm/dL (6.2-8.1)
[2022-03-24 12:00] LABS: COLLECTION METHOD CLEAN CATCH
[2022-03-24 12:06] VITALS: BP 125/75; PULSE 54; TEMP 97.8
[2022-03-24 12:08] LABS: PH 5 (5-8); SQUAMOUS EPITHELIAL None Seen /hpf (0-10); URINE APPEARANCE Clear (CLEAR/HAZY); URINE BACTERIA None Seen /hpf (NONE SEEN); URINE BLOOD Negative (NEGATIVE); URINE COLOR Yellow (YELLOW); URINE GLUCOSE Negative (NEGATIVE); URINE KETONE 1+ (NEGATIVE); URINE NITRATE Negative (NEGATIVE); URINE PROTEIN(semi-quant) Negative (NEGATIVE); URINE RBC 0-2 /hpf (0-2); URINE UROBILINOGEN Negative (NEGATIVE)
== END 2022-03-24 12:13 | disposition home or self-care (01) ==
LOC: COL.ER 09:31
PROVIDERS: Family Medicine
DX: J44.9 Chronic obstructive pulmonary disease, unspecified (principal); R10.9 Unspecified abdominal pain; M54.9 Dorsalgia, unspecified; G89.29 Other chronic pain; Z79.891 Long term (current) use of opiate analgesic
CPT/HCPCS: C9113; J2270; J2405; J7120

== ENCOUNTER 2022-04-08 01:43 | Emergency (ER) | payer MEDICARE, MEDICAID ==
[~2022-04-08] VITALS: Ht 177.8 cm; Wt 72.7 kg
[2022-04-08 03:04] LABS: BASO % 0.8 % (0.0-2.0); EOS # 0.1 K/mm3 (0.0-0.7); EOS % 1.6 % (0.0-4.0); GRAN # 1.9 K/mm3 (1.4-6.5); GRAN % 36.7 % (42.2-75.2); HEMOGLOBIN 15.8 g/dl (13.5-18.0); LYMPH # 2.5 K/mm3 (1.2-3.4); LYMPH % 49.6 % (20.0-51.0); MEAN CELL VOLUME 100 fl (80.0-100.0); MEAN CORPUSCULAR HEMOGLOBIN 35 pg (27-31); MEAN CORPUSCULAR HGB CONC 34 g/dl (33.0-37.0); MEAN PLATELET VOLUME 11.4 fl (7.4-10.4); MONO # 0.6 K/mm3 (0.1-0.6); MONO % 11.1 % (1.7-9.3); PLATELET COUNT 156 K/mm3 (130-400); RED BLOOD COUNT 4.58 M/mm3 (4.20-5.60); REDCELL DISTRIBUTION WIDTH-CV 12.9 % (11.5-14.5)
[2022-04-08 03:16] LABS: ALANINE AMINOTRANSFERASE 16 U/L (0-55); ALBUMIN 3.9 gm/dL (3.4-4.8); ALKALINE PHOSPHATASE 73 U/L (40-150); ANION GAP 21 mmol/L (7-16); AST,SGOT 44 U/L (5-34); BILIRUBIN,TOTAL 0.8 mg/dL (0.2-1.2); BLOOD UREA NITROGEN 7 mg/dL (8-26); CALCIUM 9.4 mg/dL (8.4-10.2); CARBON DIOXIDE 18 mmol/L (23-31); CREATININE, serum 0.68 mg/dL (0.72-1.25); POTASSIUM 4.6 mmol/L (3.5-4.5); SODIUM 126 mmol/L (136-145)
[2022-04-08 03:18] LABS: CHLORIDE 87 mmol/L (98-107); GLUCOSE 51 mg/dL (70-99)
[2022-04-08 03:50] LABS: TROPONIN-I < 0.010 ng/mL (0.00-0.033)
[2022-04-08 04:40] VITALS: BP 111/74; PULSE 64; TEMP 97.6
== END 2022-04-08 04:40 | disposition home or self-care (01) ==
LOC: COL.ER 01:43
PROVIDERS: Personal Emergency Response Attendant
DX: F10.129 Alcohol abuse with intoxication, unspecified (principal); E16.2 Hypoglycemia, unspecified; G89.29 Other chronic pain; F17.210 Nicotine dependence, cigarettes, uncomplicated
CPT/HCPCS: J2930

== ENCOUNTER 2022-05-05 12:30 | Emergency (ER) | payer MEDICARE, MEDICAID ==
[~2022-05-05] VITALS: Ht 175.3 cm; Wt 52.3 kg
[~2022-05-05 12:30] MED LIST changes: +PRIL40 PO; -PRILOSEC 20MG20 MG PO
[2022-05-05 12:42] VITALS: TEMP 98
[2022-05-05 13:18] LABS: BASO % 0.6 % (0.0-2.0); EOS # 0.1 K/mm3 (0.0-0.7); EOS % 2.1 % (0.0-4.0); GRAN % 31.1 % (42.2-75.2); HEMATOCRIT 39.4 % (42.0-52.0); HEMOGLOBIN 14.1 g/dl (13.5-18.0); LYMPH # 3.4 K/mm3 (1.2-3.4); LYMPH % 54.7 % (20.0-51.0); MEAN CELL VOLUME 96 fl (80.0-100.0); MEAN CORPUSCULAR HEMOGLOBIN 35 pg (27-31); MEAN CORPUSCULAR HGB CONC 36 g/dl (33.0-37.0); MEAN PLATELET VOLUME 10.5 fl (7.4-10.4); MONO # 0.7 K/mm3 (0.1-0.6); MONO % 11.3 % (1.7-9.3); PLATELET COUNT 232 K/mm3 (130-400); RED BLOOD COUNT 4.09 M/mm3 (4.20-5.60); REDCELL DISTRIBUTION WIDTH-CV 13.5 % (11.5-14.5)
[2022-05-05 13:33] LABS: ALANINE AMINOTRANSFERASE 11 U/L (0-55); ALBUMIN 3.5 gm/dL (3.4-4.8); ALKALINE PHOSPHATASE 75 U/L (40-150); ANION GAP 12 mmol/L (7-16); AST,SGOT 28 U/L (5-34); BILIRUBIN,TOTAL 0.6 mg/dL (0.2-1.2); BLOOD UREA NITROGEN 5 mg/dL (8-26); CALCIUM 9.3 mg/dL (8.4-10.2); CARBON DIOXIDE 25 mmol/L (23-31); CHLORIDE 95 mmol/L (98-107); CREATININE, serum 0.63 mg/dL (0.72-1.25); GLUCOSE 90 mg/dL (70-99); POTASSIUM 4.2 mmol/L (3.5-4.5); SODIUM 132 mmol/L (136-145); TOTAL PROTEIN 6.2 gm/dL (6.2-8.1)
[2022-05-05 13:39] LABS: TROPONIN-I < 0.010 ng/mL (0.00-0.033)
--- NOTE | 2022-05-05 14:33 | NUR ---
heater worker met with patient and spouse, per spouse request. Spouse verbalizes concerns that patient needs an MRI due to history of back problems and needing a surgery 8 years ago to correct issues. Spouse states that they saw patient's primary care provider, Dr Jaquez, a few weeks ago. Patient states that Dr Jaquez won't consider the surgery as patient continues to consume alcohol. Spouse states that she is tapering patient down on his alcohol consumption, however, when she is gone the family gives patient increased amounts of alcohol. Worker provided [facility] alcohol treatment phone number to patient and spouse. Worker also provided the Medicare.gov share for long-term options and advised of the nursing homes in network with [facility]. Patient and spouse state they are not ready for nursing facility placement and will return home this date. Patient ambulates to the bathroom and is waiting for discharge to home. Worker collaborated with emergency room provider of the above information.
[2022-05-05 15:00] VITALS: BP 132/88; PULSE 60
[2022-05-06] MEDS ORDERED: PERCOCET 325 MG1 TA2 PO (10:49)
[2022-05-06] MEDS ORDERED: MASON NATURAL2000 IU PO (10:55)
== END 2022-05-05 15:10 | disposition home or self-care (01) ==
LOC: COL.ER 12:30
PROVIDERS: Nurse Practitioner
DX: G89.29 Other chronic pain (principal); F17.210 Nicotine dependence, cigarettes, uncomplicated; Z87.39 Personal history of other diseases of the musculoskeletal system and connective tissue; Z20.822 Contact with and (suspected) exposure to COVID-19

== ENCOUNTER 2022-05-06 03:56 | Inpatient (IN) | payer MEDICARE, MEDICAID ==
[2022-05-06] VITALS (8 sets, daily range): BP systolic 126–146; BP diastolic 41–96; PULSE 57–83; TEMP 97.5–97.7
[~2022-05-06] VITALS: Ht 177.8 cm; Wt 48.7 kg
[2022-05-06 04:15] LABS: BASO % 0.7 % (0.0-2.0); EOS # 0.1 K/mm3 (0.0-0.7); EOS % 1.5 % (0.0-4.0); GRAN # 2.1 K/mm3 (1.4-6.5); GRAN % 35.4 % (42.2-75.2); HEMOGLOBIN 14.5 g/dl (13.5-18.0); LYMPH # 2.9 K/mm3 (1.2-3.4); LYMPH % 49.5 % (20.0-51.0); MEAN CELL VOLUME 95 fl (80.0-100.0); MEAN CORPUSCULAR HEMOGLOBIN 34 pg (27-31); MEAN CORPUSCULAR HGB CONC 36 g/dl (33.0-37.0); MEAN PLATELET VOLUME 10.7 fl (7.4-10.4); MONO # 0.8 K/mm3 (0.1-0.6); MONO % 12.7 % (1.7-9.3); PLATELET COUNT 229 K/mm3 (130-400); RED BLOOD COUNT 4.22 M/mm3 (4.20-5.60); REDCELL DISTRIBUTION WIDTH-CV 13.4 % (11.5-14.5)
[2022-05-06 05:01] LABS: LIPASE 165 U/L (8-78); TROPONIN-I < 0.010 ng/mL (0.00-0.033)
[2022-05-06 05:09] LABS: ALANINE AMINOTRANSFERASE 17 U/L (0-55); ALBUMIN 3.6 gm/dL (3.4-4.8); ALKALINE PHOSPHATASE 77 U/L (40-150); ANION GAP 15 mmol/L (7-16); AST,SGOT 36 U/L (5-34); BILIRUBIN,TOTAL 0.6 mg/dL (0.2-1.2); BLOOD UREA NITROGEN 4 mg/dL (8-26); CALCIUM 9.4 mg/dL (8.4-10.2); CARBON DIOXIDE 24 mmol/L (23-31); CHLORIDE 95 mmol/L (98-107); GLUCOSE 88 mg/dL (70-99); POTASSIUM 4.1 mmol/L (3.5-4.5); SODIUM 134 mmol/L (136-145); TOTAL PROTEIN 6.1 gm/dL (6.2-8.1)
--- NOTE | 2022-05-06 10:21 | NUR ---
PT ADMITTED TO UNIT. ADMISSION INTAKE AND ASSESSMENT COMPLETED. UNABLE TO UPDATED MED REC AT THIS TIME, PT DOES NOT KNOW WHAT HOME MEDICATIONS HE IS TAKING. PT WAS ABLE TO GET IN CONTACT WITH AND SHE PLANS ON CALLING THE HOSPITAL BACK WITH MEDICATION LIST. PT ORIENTED TO ROOM. PT COMPLAINING OF GENERALIZED PAIN AND REQUESTS PAIN MEDICATIONS, NOTHING ON eMAR AT THIS TIME, DR. DALEY NOTIFIED. WILL CONTINUE TO MONITOR.
[2022-05-06] MEDS ORDERED: PERCOCET 325 MG1 TA2 PO (10:49)
[2022-05-06] MEDS ORDERED: MASON NATURAL2000 IU PO (10:55)
--- NOTE | 2022-05-06 12:14 | NUR ---
PT FELL WHILE AMBULATING TO THE BATHROOM AT THIS TIME. FALL WITNESSED BY THIS RN WHO WALKED IN SECONDS BEFORE PT FELL BACKWARDS INTO SHOWER. VSS. PT DENIES ANY PAIN. SKIN INTACT. PT ABLE TO AMBULATE BACK TO BED WITH RN ASSISSTANCE. CALL LIGHT WITHIN REACH. BED ALARMS IN PLACE. FALL PRECAUTIONS IN PLACE. WILL CONTINUE TO MONITOR.
[2022-05-07] VITALS (9 sets, daily range): BP systolic 110–144; BP diastolic 74–88; PULSE 53–94; TEMP 97.4–98.3
--- NOTE | 2022-05-07 06:49 | NUR ---
CIWA 2 most of this shift, this am pt c/o increased pain, wanting to eat, and "just not feeling well", denies nausea. scored 5 and 0.5 mg ativan given, along with 2mg morphine and po robaxin for pain. IVF infusing per piv @100cc/hr, on 1 1/2L O2 per NC. voiding using urinal. pt able to sleep in between pain meds, oxy given q4 prn, morphine q3-4 prn, reports pain @ 10/10.
[2022-05-07 06:56] LABS: CALCIUM 9.5 mg/dL (8.4-10.2); CREATININE, serum 0.62 mg/dL (0.72-1.25); MAGNESIUM 1.6 mg/dL (1.6-2.6); POTASSIUM 3.6 mmol/L (3.5-4.5)
--- NOTE | 2022-05-07 08:51 | NUR ---
0800 Pt awake in bed. Morning medications administered. Tele on with NSR. AP RRR. Lungs lower lobes JAISON sound coarse on exhale. O2 is 94 at 1 1/2L NC. NS infusing 100mL/hr with NS on R hand; no edema, redness, or infiltration. Pt complains of abdominal pain and back pain on a scale of 9/10. NATAN Kirkland administered roxicodone per eMAR. Pts saccrum appears reddened. Pt educated to rotate sides q2hr to keep pressure off saccrum. Bed alarm on. Call light within reach.
--- NOTE | 2022-05-07 10:25 | NUR ---
IV medications given as ordered. Shift assessment completed, charted by RANDY Leija, charting reviewed.
--- NOTE | 2022-05-07 10:37 | NUR ---
Initial visit; Patient thanked Nuclear Unit Operator for looking in on him and offering God's blessings and keeping him in Nuclear Unit Operator prayers. Nuclear Unit Operator will look in on him while he is a patient here.
--- NOTE | 2022-05-07 14:52 | NUR ---
Anode Machine Operator met with patient to discuss discharge planning. Patient lives in [place] with his , Catrina (ph#[phone]) and sees Dr. Jaquez for primary care. Patient obtains medications from [facility] and has a cane, walker, and electric wheelchair at home. Patient reports he is mostly independent with ADLS but that Catrina helps him as needed. Patient is unsure if he has ever completed DPOA-HC. Patient plans to return home at time of discharge. Patient had recent ED visit 05/05/22 where he was provided with Drug/Alcohol Resources and guided to the [facility] number. SW will continue to follow for discharge needs. Discharge Plan: Home
--- NOTE | 2022-05-07 18:00 | NUR ---
Patient has had an ok day. Has requiried prn pain medication frequently this shift for chronic back pain. Consistently rates pain a 9/10. No signs of grimacing or figedting from pain. Resting in bed comfortably. Scoring 2 on CIWA. Denies any further needs at this time. Call light in reach. Fall precautions in place.
--- NOTE | 2022-05-07 18:30 | NUR ---
THE PATIENT HAS CALLED FOR PAIN MEDICATION AT THIS TIME. WILL DO BEDSIDE SHIFT REPORT WITH NATAN HENDERSON AND GIVE MEDICATIONS PER MAR. NO OTHER CONCERNS.
[2022-05-08 04:42] VITALS: BP 151/92; PULSE 61; TEMP 97.5
[2022-05-08 07:10] LABS: BASO # 0.1 K/mm3 (0.0-0.2); BASO % 0.5 % (0.0-2.0); EOS # 0.3 K/mm3 (0.0-0.7); EOS % 2.9 % (0.0-4.0); GRAN # 6.2 K/mm3 (1.4-6.5); HEMATOCRIT 38.2 % (42.0-52.0); HEMOGLOBIN 13.6 g/dl (13.5-18.0); LYMPH # 2.5 K/mm3 (1.2-3.4); LYMPH % 25.1 % (20.0-51.0); MEAN CELL VOLUME 99 fl (80.0-100.0); MEAN CORPUSCULAR HEMOGLOBIN 35 pg (27-31); MEAN CORPUSCULAR HGB CONC 36 g/dl (33.0-37.0); MEAN PLATELET VOLUME 10.5 fl (7.4-10.4); MONO # 0.9 K/mm3 (0.1-0.6); MONO % 9.3 % (1.7-9.3); PLATELET COUNT 160 K/mm3 (130-400); RED BLOOD COUNT 3.86 M/mm3 (4.20-5.60); REDCELL DISTRIBUTION WIDTH-CV 13.6 % (11.5-14.5)
[2022-05-08 07:27] LABS: CALCIUM 8.9 mg/dL (8.4-10.2); CREATININE, serum 0.58 mg/dL (0.72-1.25); POTASSIUM 3.3 mmol/L (3.5-4.5)
[2022-05-08 07:51] VITALS: BP 146/75; PULSE 68; TEMP 97.6
[2022-05-08] MEDS ORDERED: MAG-OX 400400 MG/TAB PO (09:06)
[2022-05-08] MEDS ORDERED: K-DUR20 MEQ PO (09:06)
--- NOTE | 2022-05-08 10:05 | NUR ---
Follow-up visit; Patient thanked Senior Principal Software Engineer for stopping and wishing him well, he wished Senior Principal Software Engineer God's blessings.
[2022-05-08 11:00] VITALS: BP 123/89; PULSE 91; TEMP 97.2
--- NOTE | 2022-05-08 12:57 | NUR ---
Manager Business Systems collaborated with RN who advised patient needed a ride home. Taxi voucher provided.
--- NOTE | 2022-05-08 13:00 | NUR ---
Scheduled medications given. Shift assessment preformed. Pain medication given per Emar. 1 dose of Ativan given per CIWA protocol. Patient consistently rates his pain a 9/10, upon assessment of patient, no visible signs of pain observed. VSS. Patient A&O. Patient deemed fit for discharge home. IV DC'd, catheter intact. Discharge education/instructions given. Patient educated on not drinking alcohol upon discharge and finding support through AA. All questions answered. This RN attempted to call patient's three times, who did not not answer. No way to leave message. [employer] service aquired for transportation home. Patient ambulated from building escorted by [facility] Staff. [employer] transporting home. Patient sating 94% on Room air.
== END 2022-05-08 12:00 | disposition home or self-care (01) | DRG 438 ==
LOC: COL.ER 03:56 → MEDICAL 07:31
PROVIDERS: Emergency Medicine; Physician Assistant; ADMIT Internal Medicine
DX: K85.20 Alcohol induced acute pancreatitis without necrosis or infection (principal); E43 Unspecified severe protein-calorie malnutrition; Z68.1 Body mass index [BMI] 19.9 or less, adult; G89.29 Other chronic pain; J43.9 Emphysema, unspecified; F17.210 Nicotine dependence, cigarettes, uncomplicated; I10 Essential (primary) hypertension; F10.10 Alcohol abuse, uncomplicated; G40.909 Epilepsy, unspecified, not intractable, without status epilepticus; Z88.6 Allergy status to analgesic agent; Z23 Encounter for immunization
CPT/HCPCS: J1170; J1650; J2060; J2270; J7030; J7120; J7512; Q9967

== ENCOUNTER 2022-05-26 13:05 | Emergency (ER) | payer MEDICARE, MEDICAID ==
[~2022-05-26] VITALS: Ht 177.8 cm; Wt 52.3 kg
[~2022-05-26 13:05] MED LIST changes: +K-DUR20 MEQ PO; +MAG-OX 400400 MG/TAB PO; +MASON NATURAL2000 IU PO
[2022-05-26 13:10] VITALS: TEMP 98.1
[2022-05-26 13:47] LABS: BASO % 0.8 % (0.0-2.0); EOS # 0.1 K/mm3 (0.0-0.7); EOS % 1.7 % (0.0-4.0); HEMATOCRIT 37.7 % (42.0-52.0); LYMPH # 2.5 K/mm3 (1.2-3.4); LYMPH % 47.8 % (20.0-51.0); MEAN CELL VOLUME 99 fl (80.0-100.0); MEAN CORPUSCULAR HEMOGLOBIN 34 pg (27-31); MEAN CORPUSCULAR HGB CONC 35 g/dl (33.0-37.0); MEAN PLATELET VOLUME 10.8 fl (7.4-10.4); MONO # 0.7 K/mm3 (0.1-0.6); MONO % 12.5 % (1.7-9.3); PLATELET COUNT 206 K/mm3 (130-400); RED BLOOD COUNT 3.82 M/mm3 (4.20-5.60); REDCELL DISTRIBUTION WIDTH-CV 14.2 % (11.5-14.5)
[2022-05-26 13:51] LABS: COLLECTION METHOD CLEAN CATCH
[2022-05-26 14:03] LABS: ALBUMIN 3.5 gm/dL (3.4-4.8); BILIRUBIN,TOTAL 0.7 mg/dL (0.2-1.2); C-REACTIVE PROTEIN 0.33 mg/dL (0.00-0.50); CALCIUM 9.5 mg/dL (8.4-10.2); CREATININE, serum 0.77 mg/dL (0.72-1.25); POTASSIUM 3.8 mmol/L (3.5-4.5); TOTAL PROTEIN 6.3 gm/dL (6.2-8.1)
[2022-05-26 14:12] LABS: SQUAMOUS EPITHELIAL None Seen /hpf (0-10); URINE BACTERIA None Seen /hpf (NONE SEEN); URINE RBC 0-2 /hpf (0-2)
[2022-05-26 14:13] LABS: URINE COLOR Yellow (YELLOW)
[2022-05-26 14:14] LABS: URINE APPEARANCE Clear (CLEAR/HAZY); URINE BLOOD Negative (NEGATIVE); URINE GLUCOSE Negative (NEGATIVE); URINE KETONE Negative (NEGATIVE); URINE NITRATE Negative (NEGATIVE); URINE PROTEIN(semi-quant) Negative (NEGATIVE); URINE UROBILINOGEN 0.2 E.U/dL (0.2-1.0)
[2022-05-26 15:14] VITALS: BP 136/94; PULSE 60
[2022-05-26] MEDS ORDERED: ZOFRAN ODT4 MG PO (15:14)
== END 2022-05-26 15:28 | disposition home or self-care (01) ==
LOC: COL.ER 13:05
PROVIDERS: Family Medicine
DX: R10.13 Epigastric pain (principal); G89.29 Other chronic pain; F17.210 Nicotine dependence, cigarettes, uncomplicated; Z87.19 Personal history of other diseases of the digestive system; Z88.6 Allergy status to analgesic agent
CPT/HCPCS: J1885; J2270; J2405; J7120

== ENCOUNTER 2022-07-08 05:12 | Emergency (ER) | payer MEDICARE, MEDICAID ==
[~2022-07-08] VITALS: Ht 177.8 cm; Wt 53.2 kg
[2022-07-08 05:17] VITALS: BP 134/73; TEMP 98.1
[2022-07-08 05:40] VITALS: PULSE 70
[2022-07-08] MEDS ORDERED: FENTANYL 25 MCG TD (05:51)
== END 2022-07-08 05:40 | disposition home or self-care (01) ==
LOC: COL.ER 05:12
DX: G89.29 Other chronic pain (principal); Z88.6 Allergy status to analgesic agent

== ENCOUNTER 2022-10-31 02:11 | Emergency (ER) | payer MEDICARE, MEDICAID ==
[~2022-10-31] VITALS: Ht 175.3 cm; Wt 54.5 kg
[~2022-10-31 02:11] MED LIST changes: +FENTANYL 25 MCG TD
[2022-10-31 04:05] LABS: BASO % 0.4 % (0.0-2.0); EOS # 0.1 K/mm3 (0.0-0.7); EOS % 1.2 % (0.0-4.0); GRAN # 4.1 K/mm3 (1.4-6.5); GRAN % 61.1 % (42.2-75.2); HEMATOCRIT 38.8 % (42.0-52.0); HEMOGLOBIN 13.6 g/dl (13.5-18.0); LYMPH # 1.9 K/mm3 (1.2-3.4); LYMPH % 27.5 % (20.0-51.0); MEAN CELL VOLUME 94 fl (80.0-100.0); MEAN CORPUSCULAR HEMOGLOBIN 33 pg (27-31); MEAN CORPUSCULAR HGB CONC 35 g/dl (33.0-37.0); MEAN PLATELET VOLUME 11.2 fl (7.4-10.4); MONO # 0.6 K/mm3 (0.1-0.6); MONO % 9.2 % (1.7-9.3); RED BLOOD COUNT 4.13 M/mm3 (4.20-5.60)
[2022-10-31 04:18] LABS: ALANINE AMINOTRANSFERASE 15 U/L (0-55); ALBUMIN 4.2 gm/dL (3.4-4.8); ALKALINE PHOSPHATASE 86 U/L (40-150); ANION GAP 13 mmol/L (7-16); AST,SGOT 33 U/L (5-34); BILIRUBIN,TOTAL 0.9 mg/dL (0.2-1.2); BLOOD UREA NITROGEN 8 mg/dL (8-26); CALCIUM 9.8 mg/dL (8.4-10.2); CARBON DIOXIDE 23 mmol/L (23-31); CHLORIDE 98 mmol/L (98-107); CREATININE, serum 0.71 mg/dL (0.72-1.25); GLUCOSE 99 mg/dL (70-99); LIPASE 9 U/L (8-78); PLATELET COUNT 115 K/mm3 (130-400); SODIUM 134 mmol/L (136-145); TOTAL PROTEIN 7.2 gm/dL (6.2-8.1)
[2022-10-31 04:19] LABS: ALCOHOL(ethanol),MEDICAL < 10 mg/dL (0-10)
[2022-10-31 04:26] LABS: TROPONIN-I < 0.010 ng/mL (0.00-0.033)
[2022-10-31 04:49] LABS: TRICYCLIC ANTIDEPRESS URINE NEGATIVE
[2022-10-31 06:26] VITALS: BP 114/80; PULSE 87; TEMP 98.2
== END 2022-10-31 06:46 | disposition home or self-care (01) ==
LOC: COL.ER 02:11
PROVIDERS: Emergency Medicine
DX: R07.9 Chest pain, unspecified (principal); G89.29 Other chronic pain; F11.23 Opioid dependence with withdrawal; F12.90 Cannabis use, unspecified, uncomplicated
CPT/HCPCS: J2270; J7030

== ENCOUNTER 2022-11-25 06:41 | Emergency (ER) | payer MEDICARE, MEDICAID ==
[~2022-11-25] VITALS: Ht 175.3 cm; Wt 54.1 kg
[2022-11-25 06:44] VITALS: TEMP 97.7
[2022-11-25 07:19] LABS: BASO % 0.5 % (0.0-2.0); EOS # 0.2 K/mm3 (0.0-0.7); EOS % 2.3 % (0.0-4.0); GRAN # 3.6 K/mm3 (1.4-6.5); GRAN % 49.2 % (42.2-75.2); HEMATOCRIT 41.3 % (42.0-52.0); HEMOGLOBIN 14.5 g/dl (13.5-18.0); LYMPH # 2.5 K/mm3 (1.2-3.4); LYMPH % 33.2 % (20.0-51.0); MEAN CELL VOLUME 95 fl (80.0-100.0); MEAN CORPUSCULAR HEMOGLOBIN 33 pg (27-31); MEAN CORPUSCULAR HGB CONC 35 g/dl (33.0-37.0); MEAN PLATELET VOLUME 11.3 fl (7.4-10.4); MONO # 1.1 K/mm3 (0.1-0.6); MONO % 14.3 % (1.7-9.3); PLATELET COUNT 160 K/mm3 (130-400); RED BLOOD COUNT 4.35 M/mm3 (4.20-5.60); REDCELL DISTRIBUTION WIDTH-CV 14.5 % (11.5-14.5)
[2022-11-25 08:34] LABS: ALANINE AMINOTRANSFERASE 15 U/L (0-55); ALBUMIN 4.5 gm/dL (3.4-4.8); ALCOHOL(ethanol),MEDICAL < 10 mg/dL (0-10); ALKALINE PHOSPHATASE 87 U/L (40-150); ANION GAP 12 mmol/L (7-16); AST,SGOT 44 U/L (5-34); BILIRUBIN,TOTAL 0.9 mg/dL (0.2-1.2); BLOOD UREA NITROGEN 7 mg/dL (8-26); C-REACTIVE PROTEIN 0.59 mg/dL (0.00-0.50); CALCIUM 9.9 mg/dL (8.4-10.2); CARBON DIOXIDE 24 mmol/L (23-31); CHLORIDE 94 mmol/L (98-107); CREATININE, serum 0.74 mg/dL (0.72-1.25); GLUCOSE 113 mg/dL (70-99); LIPASE 6 U/L (8-78); POTASSIUM 4.6 mmol/L (3.5-4.5); SODIUM 130 mmol/L (136-145); TOTAL PROTEIN 7.3 gm/dL (6.2-8.1)
[2022-11-25 09:06] LABS: COLLECTION METHOD CLEAN CATCH
[2022-11-25 09:17] LABS: SQUAMOUS EPITHELIAL None Seen /hpf (0-10); URINE BACTERIA None Seen /hpf (NONE SEEN); URINE RBC 0-2 /hpf (0-2)
[2022-11-25 09:20] LABS: TRICYCLIC ANTIDEPRESS URINE NEGATIVE
[2022-11-25 09:24] LABS: PH 6.5 (5.0-8.5); URINE APPEARANCE Clear (CLEAR/HAZY); URINE COLOR Yellow (YELLOW); URINE GLUCOSE Negative (NEGATIVE); URINE KETONE TRACE (NEGATIVE); URINE PROTEIN(semi-quant) Negative (NEGATIVE)
[2022-11-25 09:25] LABS: URINE BLOOD Negative (NEGATIVE); URINE NITRATE Negative (NEGATIVE); URINE UROBILINOGEN 0.2 E.U/dL (0.2-1.0)
[2022-11-25 10:29] VITALS: BP 149/94; PULSE 63
== END 2022-11-25 10:29 | disposition home or self-care (01) ==
LOC: COL.ER 06:41
PROVIDERS: Emergency Medicine
DX: R10.84 Generalized abdominal pain (principal); R16.0 Hepatomegaly, not elsewhere classified; J44.9 Chronic obstructive pulmonary disease, unspecified; E87.1 Hypo-osmolality and hyponatremia; E87.5 Hyperkalemia; Z20.822 Contact with and (suspected) exposure to COVID-19; Z87.19 Personal history of other diseases of the digestive system
CPT/HCPCS: J2270

== ENCOUNTER → 2022-12-15 | Outpatient (CLI) | payer MEDICARE, MEDICAID ==
[2022-12-15] VITALS (18 sets, daily range): BP systolic 99–186; BP diastolic 82–118; PULSE 51–71; TEMP 97.3
[~2022-12-15] VITALS: Ht 175.3 cm; Wt 53.4 kg
[~2022-12-15] MED LIST changes: +VITAMIN B-625 MG PO; +VITAMIN D31000 IU PO; +ZESTRIL 5MG5 MG PO
[2022-12-15 10:03] LABS: INR 1.1 (0.8-3.0); PROTHROMBIN TIME 12.1 SECONDS (9.7-12.8)
--- NOTE | 2022-12-15 13:52 | NUR ---
SRINI notified by NATAN Espana that she has been unable to get ahold of the patients to pick the patient up. SRINI attempted to contact and was unsuccessful. SRINI met with patient to king if he felt like a welfare check needed to be completed to which the patient denied. SRINI provided the patient with an Uber home totaling $11.96.
== END ==
LOC: COL.RAD 08:39
PROVIDERS: Family Medicine
DX: R16.0 Hepatomegaly, not elsewhere classified (principal)
CPT/HCPCS: J2250; J3010

== ENCOUNTER 2022-12-22 19:15 | Emergency (ER) | payer MEDICARE, MEDICAID ==
[~2022-12-22] VITALS: Ht 177.8 cm; Wt 51.8 kg
[2022-12-22 19:25] VITALS: PULSE 84; TEMP 98
[2022-12-22 20:10] VITALS: BP 133/84
== END 2022-12-22 20:15 | disposition home or self-care (01) ==
LOC: COL.ER 19:15
DX: R05.3 Chronic cough (principal); G89.29 Other chronic pain; R10.9 Unspecified abdominal pain; F17.200 Nicotine dependence, unspecified, uncomplicated; Z87.19 Personal history of other diseases of the digestive system; Z98.890 Other specified postprocedural states; W18.30XA Fall on same level, unspecified, initial encounter; W22.8XXA Striking against or struck by other objects, initial encounter

== ENCOUNTER 2022-12-23 00:45 | Emergency (ER) | payer MEDICARE, MEDICAID ==
[~2022-12-23] VITALS: Ht 177.8 cm; Wt 51.8 kg
[2022-12-23 00:49] VITALS: TEMP 98.1
[2022-12-23 01:36] VITALS: BP 145/74; PULSE 80
== END 2022-12-23 01:36 | disposition home or self-care (01) ==
LOC: COL.ER 00:45
DX: G89.29 Other chronic pain (principal); F17.210 Nicotine dependence, cigarettes, uncomplicated; Z28.310 Unvaccinated for COVID-19

== ENCOUNTER 2023-01-05 10:08 | Emergency (ER) | payer MEDICARE ==
[~2023-01-05] VITALS: Ht 177.8 cm; Wt 51.8 kg
[2023-01-05 10:12] VITALS: BP 110/74; PULSE 70; TEMP 98.4
== END 2023-01-05 11:16 | disposition home or self-care (01) ==
LOC: COL.ER 10:08
DX: G89.29 Other chronic pain (principal); Z76.0 Encounter for issue of repeat prescription; F17.210 Nicotine dependence, cigarettes, uncomplicated

== ENCOUNTER 2023-09-16 17:58 | Inpatient (IN) | payer MEDICARE ==
[~2023-09-16] VITALS: Ht 177.8 cm; Wt 52.1 kg
[~2023-09-16 17:58] MED LIST changes: +Thiamine 100 MG TAB PO SCH
[2023-09-16] MEDS ORDERED: NS 1,000 ML IV ONE (19:00)
[2023-09-16 19:34] LABS: BASO % 0.3 % (0.0-2.0); EOS % 0.1 % (0.0-4.0); GRAN # 7.8 K/mm3 (1.4-6.5); GRAN % 77.6 % (42.2-75.2); LYMPH # 1.4 K/mm3 (1.2-3.4); LYMPH % 13.9 % (20.0-51.0); MEAN CELL VOLUME 101 fl (80.0-100.0); MEAN CORPUSCULAR HEMOGLOBIN 34 pg (27-31); MEAN CORPUSCULAR HGB CONC 33 g/dl (33.0-37.0); MEAN PLATELET VOLUME 10.9 fl (7.4-10.4); MONO # 0.8 K/mm3 (0.1-0.6); MONO % 7.5 % (1.7-9.3); PLATELET COUNT 192 K/mm3 (130-400); RED BLOOD COUNT 4.75 M/mm3 (4.20-5.60); REDCELL DISTRIBUTION WIDTH-CV 15.4 % (11.5-14.5)
[2023-09-16 19:53] LABS: ALANINE AMINOTRANSFERASE 20 U/L (0-55); ALBUMIN 3.9 gm/dL (3.4-4.8); ALKALINE PHOSPHATASE 167 U/L (40-150); ANION GAP 12 mmol/L (7-16); AST,SGOT 41 U/L (5-34); BILIRUBIN,TOTAL 0.7 mg/dL (0.2-1.2); BLOOD UREA NITROGEN 9 mg/dL (8-26); CALCIUM 10.1 mg/dL (8.4-10.2); CARBON DIOXIDE 27 mmol/L (23-31); CHLORIDE 90 mmol/L (98-107); CREATININE, serum 0.84 mg/dL (0.72-1.25); GLUCOSE 101 mg/dL (70-99); POTASSIUM 4.2 mmol/L (3.5-4.5); SODIUM 129 mmol/L (136-145); TOTAL PROTEIN 7.5 gm/dL (6.2-8.1)
[2023-09-16 20:07] LABS: TROPONIN-I < 0.010 ng/mL (0.00-0.033)
[2023-09-16 20:26] LABS: COLLECTION METHOD CLEAN CATCH
[2023-09-16] MEDS ORDERED: Folic Acid 1 MG TAB PO SCH (20:45)
[2023-09-16] MEDS ORDERED: oxyCODONE/Acetaminophen 10-325 MG TAB PO PRN (20:45)
[2023-09-16] MEDS ORDERED: FENTANYL 50MCG TD (20:49)
[2023-09-16 20:50] LABS: URINE APPEARANCE Clear (CLEAR/HAZY); URINE COLOR Yellow (YELLOW)
[2023-09-16] MEDS ORDERED: TRELEGY ELLIPT1 EAC1 IH (20:50)
[2023-09-16 20:51] LABS: MUCOUS Present (NOT PRESENT); PH 5.5 (5.0-8.5); SQUAMOUS EPITHELIAL 0-2 /hpf (0-10); URINE BLOOD Negative (NEGATIVE); URINE GLUCOSE Negative (NEGATIVE); URINE KETONE Negative (NEGATIVE); URINE NITRATE Negative (NEGATIVE); URINE PROTEIN(semi-quant) Negative (NEGATIVE); URINE RBC 0-2 /hpf (0-2); URINE UROBILINOGEN 0.2 E.U/dL (0.2-1.0); URINE WBC 0-2 /hpf (0-2)
[2023-09-16 20:52] LABS: URINE BACTERIA Rare /hpf (NONE SEEN)
[2023-09-16] MEDS ORDERED: Albuterol/Ipratropium 3 MG-0.5 MG/3 ML Neb Soln IH PRN (21:00)
[2023-09-16] MEDS ORDERED: Albuterol 0.083% Neb Soln 2.5 MG/3 ML UD IH PRN (21:00)
[2023-09-16] MEDS ORDERED: Carvedilol 6.25 MG TAB PO SCH (21:00)
[2023-09-16] MEDS ORDERED: cefTRIAXone 1 G in Water For Injection,Sterile 10 ML IV SCH (21:00)
[2023-09-16] MEDS ORDERED: fentaNYL Patch Removal/Drugbuster TD SCH (21:00)
[2023-09-16] MEDS ORDERED: fentaNYL 50 MCG 72 HR PATCH TD SCH (21:00)
[2023-09-16] MEDS ORDERED: Doxycycline Hyclate 100 MG in NS 150 ML IV SCH (21:15)
[2023-09-16 21:38] LABS: ARTERIAL BLD GAS O2 SATURATION 95.8 % (92-100); ARTERIAL BLD GAS TCO2 CT 29.8; ARTERIAL BLOOD GAS HCO3 28.5 meq/L (22-26); ARTERIAL BLOOD GAS PCO2 42.4 mmHg (35-45); ARTERIAL BLOOD GAS pH 7.45 (7.35-7.45)
[2023-09-16] MEDS ORDERED: NS 1,000 ML IV SCH (21:45)
--- NOTE | 2023-09-16 22:20 | NUR ---
Patient arrived to the unit at this time with belongings. Assessment and med rec complete. States he is in pain rating it a 10/10 and hasn't got his pain meds in over 10 hours. Pain meds given once med orders resumed. Seizure pads in place per order. IV in right hand infusing with no complications. Oriented patient to room, call light, phone, bed, and bathroom. Snacks given per request, denies any other needs. Call light and personal items in reach. Bed in low position and bed alarm on.
[2023-09-16 22:30] VITALS: BP 136/74; PULSE 80; TEMP 98.2
[2023-09-16] MEDS ORDERED: LORazepam 2 MG/ML 1 ML VIAL IV PRN (23:45)
[2023-09-16] MEDS ORDERED: LORazepam 2 MG/ML 1 ML VIAL IM PRN (23:45)
[2023-09-16] MEDS ORDERED: LORazepam 1 MG TAB PO PRN (23:45)
[2023-09-17] VITALS (19 sets, daily range): BP systolic 96–146; BP diastolic 66–92; PULSE 55–93; TEMP 97.5–98.4
[2023-09-17 01:39] LABS: INR 1.1 (0.8-3.0); PROTHROMBIN TIME 11.4 SECONDS (9.7-12.8)
[2023-09-17 01:41] LABS: PARTIAL THROMBOPLASTIN TIME 31.4 SECONDS (26.0-37.0)
[2023-09-17 01:50] LABS: CALCIUM 9.2 mg/dL (8.4-10.2); CREATININE, serum 0.8 mg/dL (0.72-1.25); POTASSIUM 3.8 mmol/L (3.5-4.5)
[2023-09-17] MEDS ORDERED: Albuterol/Ipratropium 3 MG-0.5 MG/3 ML Neb Soln IH SCH (02:00)
[2023-09-17] MEDS ORDERED: Morphine 4 MG/ML VIAL IV ONE (02:30)
[2023-09-17 03:41] LABS: BASO % 0.3 % (0.0-2.0); EOS % 0.2 % (0.0-4.0); GRAN # 6.5 K/mm3 (1.4-6.5); GRAN % 69.2 % (42.2-75.2); HEMATOCRIT 42.4 % (42.0-52.0); HEMOGLOBIN 14.7 g/dl (13.5-18.0); LYMPH # 1.8 K/mm3 (1.2-3.4); LYMPH % 19.4 % (20.0-51.0); MEAN CELL VOLUME 97 fl (80.0-100.0); MEAN CORPUSCULAR HEMOGLOBIN 34 pg (27-31); MEAN CORPUSCULAR HGB CONC 35 g/dl (33.0-37.0); MEAN PLATELET VOLUME 10.6 fl (7.4-10.4); MONO % 10.4 % (1.7-9.3); PLATELET COUNT 158 K/mm3 (130-400); RED BLOOD COUNT 4.37 M/mm3 (4.20-5.60); REDCELL DISTRIBUTION WIDTH-CV 15.1 % (11.5-14.5)
[2023-09-17 03:56] LABS: CALCIUM 9.3 mg/dL (8.4-10.2); CREATININE, serum 0.72 mg/dL (0.72-1.25); POTASSIUM 4.2 mmol/L (3.5-4.5)
[2023-09-17] MEDS ORDERED: Morphine 4 MG/ML VIAL IV PRN (05:45)
--- NOTE | 2023-09-17 06:00 | NUR ---
Contact hospitalist for pain unrelieved by PRN oxy provided. Recieved orders for 2mg IV morphine q2h PRN. Patient resting in bed. Remains to rate his pain at 10/10 despite recieving oxy and IV morphine. Denies any other needs this morning. Patient tested positive for RSV over night. Call light and personal items in reach. Bed in low position and bed alarm on.
[2023-09-17] MEDS ORDERED: Budesonide Neb Susp 0.5 MG/2 ML AMP IH SCH (07:00)
[2023-09-17] MEDS ORDERED: Formoterol Neb Soln 20 MCG/2 ML UD IH SCH (07:00)
[2023-09-17] MEDS ORDERED: Multivitamin TAB PO SCH (08:00)
[2023-09-17 08:49] LABS: TRICYCLIC ANTIDEPRESS URINE NEGATIVE (NEGATIVE)
[2023-09-17] MEDS ORDERED: guaiFENesin ER 1,200 MG **** subs to guaiFENesin 400 MG PO SCH (09:00)
[2023-09-17] MEDS ORDERED: dexAMETHasone 10 MG/ML VIAL IV SCH (09:00)
[2023-09-17] MEDS ORDERED: Nicotine 21 MG DAILY PATCH TD SCH (09:00)
--- NOTE | 2023-09-17 09:00 | NUR ---
PT TOOL MAYBE HALF OF RT TX C/O INABILITY TO BREATHE DESPITE RT ASSURANCE THAT THE MED WOULD HELP HIM TO BREATHE EASIER.
--- NOTE | 2023-09-17 10:56 | NUR ---
hops farmworker called patient's room phone to complete intake due to being in isolation. Pt reports he lives in [place] with his . He sees Dr. Jaquez and obtains medications from [facility] with no difficulties. He has his contact as his , Catrina [phone], who is also admitted in the hospital. Pt does not have a DPOA-HC. He is indpendent with ADLS. He has a Ustep, cane, and electric wheelchair for DME. Pt is currently on oxygen. Pt intends to discharge home. PT eval states patient can discharge home. Discharge Plan: Home
[2023-09-17] MEDS ORDERED: Lisinopril 5 MG TAB PO SCH (12:00)
[2023-09-17] MEDS ORDERED: oxyCODONE/Acetaminophen 10-325 MG TAB PO PRN (14:15)
--- NOTE | 2023-09-17 15:04 | NUR ---
PER RT PATIENT O2 SATURATION 95% ON ROOM AIR
[2023-09-17] MEDS ORDERED: DOXYCYCLINE HY100 MG PO (15:11)
[2023-09-17] MEDS ORDERED: PREDNISONE10 MG PO (15:13)
--- NOTE | 2023-09-17 15:30 | NUR ---
PATIENT GIVEN DISCHARGE INSTRUCTIONS AND EDUCATION, ALL QUESTIONS ANSWERED. REY WAITING IN HIS ROOM WITH IS (SHE WAS IN 317 ALSO BEING DISCHAGRED RIGHT NOW) FOR THEIR RIDE.
--- NOTE | 2023-09-17 15:40 | NUR ---
PATIENT IV AND TELE REMOVED
[2023-09-17] MEDS ORDERED: levETIRAcetam 500 MG TAB PO SCH ×2 (16:08→21:00)
[2023-09-17] MEDS ORDERED: LORazepam 2 MG/ML 1 ML VIAL IV PRN (16:15)
[2023-09-17 16:28] LABS: HEMATOCRIT 45.7 % (42.0-52.0); HEMOGLOBIN 15.1 g/dl (13.5-18.0); MEAN CORPUSCULAR HEMOGLOBIN 34 pg (27-31); MEAN CORPUSCULAR HGB CONC 33 g/dl (33.0-37.0); PLATELET COUNT 183 K/mm3 (130-400); RED BLOOD COUNT 4.46 M/mm3 (4.20-5.60); REDCELL DISTRIBUTION WIDTH-CV 15.3 % (11.5-14.5)
[2023-09-17 16:30] LABS: MEAN CELL VOLUME 103 fl (80.0-100.0)
--- NOTE | 2023-09-17 16:30 | NUR ---
1554 PATIENT DID NOT CALL FOR ASSISTANCE TO LEAVE UNIT. WAS HEARD SCREAMING BY CHARGE NURSE. CHARGE NURSE FOUND PATINET OUTSIDE OF ROOM DOOR ON THE FLOOR, LYING ON HIS LEFT SIDE. PATIENT UNRESPONSIVE AND RIGID. MD ON UNIT AT TIME OF FALL/SEIZURE AND WAS AT PATIENTS SIDE. STAFF KEPT PATIENT OF LEFT SIDE AND PROVIDED SUCTION NEEDED DUE TO PATIENT DROOL FROM THE MOUTH, FACE WAS NOTED TO BE TURNING BLUE. BP NOTED TO BE ELEVATED. SPO2 67% ON ROOM AIR. SPO2 INCREASED TO 93% ON 8LNC WITH A BP OF 196/104. 1601 PATIENT MOANED IN RESPONSE TO NAME. 1602 PATINET CARRIED BACK INTO ROOM BY SEVERAL STAFF MEMBERS AND LAID SUPINE IN BED. AT THIS TIME PATIENTS COLORING PINK. 1608 PATIENT RESPONSIVE TO . BP 157/108, O2 SATURATION 94%ON 8LNC. TELEMETRY PLACED ON PATIENT, O2 SATURATION 99 ON 5LNC. 1615 LABS DRAWN PER MD ORDER, PATIENT TRYING TO PULL AWAY FROM BLOOD DRAW AND CONTINUALLY PULLING NC OFF, ATTEMPTS AT CALMING PATIENT DOWN UNSUCCESFUL. 1619 20G IV PLACED TO THE RH, IV ATIVAN GIVEN (SEE EMAR). 1620 PATIENT ORIENTED TO SELF. BP 150/94. O2 SATURATION 97% ON 5LNC. HR 91. PATIENT AWAKE AND ALERT, SITTING UP IN BED. CALL LIGHT WITHIN REACH. PATIENT ORIENTED TO CURRENT SITUATION. BED ALARM ON AND FALL PRECAUTIONS IN PLACE.
--- NOTE | 2023-09-17 16:32 | NUR ---
Staff reviewed COPD diagnosis and signs and symptoms of exacerbation. Reviewed the [employer] action plan/Zone sheet for COPD and discussed specific actions the patient can take to reduce risk of COPD exacerbations. Patient was given our "Living with Pulmonary Disease" handout and encouraged to call us if he is interested in attending. Pt did state that transportation is an issue until he can get his truck fixed.
[2023-09-17 17:10] LABS: ALBUMIN 3.5 gm/dL (3.4-4.8); BILIRUBIN,TOTAL 0.6 mg/dL (0.2-1.2); CALCIUM 9.6 mg/dL (8.4-10.2); CREATININE, serum 0.77 mg/dL (0.72-1.25)
--- NOTE | 2023-09-17 17:13 | NUR ---
MD INFORMED PATIENT BP CURRENTLY 96/66, PATIENT UNRESPONSIVE, HR WNL, AND O2 SATURATOIN IS 99% ON O2. NO NEW ORDERS AT THIS TIME. FLUIDS INFUSING.
[2023-09-17 17:25] LABS: ARTERIAL BLD GAS O2 SATURATION 98.3 % (92-100); ARTERIAL BLD GAS TCO2 CT 29.6; ARTERIAL BLOOD GAS BASE EXCESS 1.6 (-2-2); ARTERIAL BLOOD GAS PO2 114.9 mmHg (80-100); ARTERIAL BLOOD GAS pH 7.36 (7.35-7.45)
[2023-09-17 17:30] LABS: PROLACTIN 6.7 ng/mL (3.46-19.40)
--- NOTE | 2023-09-17 19:32 | NUR ---
PATINET AWAKE AND ALERT, SITTING IN BED. PATIENTS AT BEDSIDE. PATIENTS BLOOD PRESSURE IMPROVED. CALL LIGHT WITHIN REACH
--- NOTE | 2023-09-17 19:36 | NUR ---
NIGHT PRINTING SERVICES COORDINATOR INFORMED PATIENT REQUESTING SOMETHING TO HELP HIM SLEEP TONIGHT. PER PRINTING SERVICES COORDINATOR TORB MELATONIN 9MG HS FOR SLEEP.
[2023-09-17] MEDS ORDERED: amLODIPine 5 MG TAB PO SCH (20:00)
[2023-09-17] MEDS ORDERED: Melatonin 3 MG TAB PO SCH (21:00)
[2023-09-18] VITALS (9 sets, daily range): BP systolic 122–137; BP diastolic 79–89; PULSE 67–88; TEMP 97.5–98
[2023-09-18] MEDS ORDERED: LORazepam 1 MG TAB PO PRN (03:45)
[2023-09-18] MEDS ORDERED: LORazepam 2 MG/ML 1 ML VIAL IM PRN (03:45)
[2023-09-18] MEDS ORDERED: LORazepam 2 MG/ML 1 ML VIAL IV PRN (03:45)
--- NOTE | 2023-09-18 08:00 | NUR ---
PATINTE AWAKE AND ALERT, SITTING UP IN BED. PATINET DENIES ANY NEEDS OR COMPLAINTS AT THIS TIME. BED ALARM ON, CALL LIGHT WITHIN REACH.
--- NOTE | 2023-09-18 12:09 | NUR ---
Data: Communications Advisor attempted visit during Communications Advisor rounds. Assessment: Patient's bed alarm was sounding. RN and three other Staff Members responded to the alarm. Plan of Care: Communications Advisor visit not completed today. Chaplains remain available to Patient as needed/requested while admitted to this hospital.
--- NOTE | 2023-09-18 12:11 | NUR ---
Data: Assistant Women'S Basketball Coach visit offered during Assistant Women'S Basketball Coach rounds. Assessment: Patient declined. Has a visitor. Plan of Care: Chaplains remain available to Patient as needed/requested while admitted to this hospital.
[2023-09-18] MEDS ORDERED: KEPPRA 500MG500 MG PO (13:06)
--- NOTE | 2023-09-18 13:08 | NUR ---
PATIENT BECAME IRATE WITH STAFF, YELLING AND TRYING TO GET OUT OF BED. PATIENT YELLED AT RN FOR BEING LATE WITH HIS PAIN MEDICATION. THIS RN JUST GOT TO THE UNIT AFTER TRANSFERING A PATINET FROM THE ICU. PATINET CALLED, AND RN WAS IN ROOM 2 MINUTES LATER WITH MEDICAIT[employer]. PAIN MEDICATION WAS 9 MINUTES LATE. CIWA OF 11, PATINET GIVEN IV ATIVAN. PATIENT SOON AFTER SETTLED. CALL LIGHT WITHIN REACH, BED ALARM ON.
--- NOTE | 2023-09-18 13:13 | NUR ---
O2 DELIVERED TO PATIENT. PATIENT AWAITING RIDE
--- NOTE | 2023-09-18 13:15 | NUR ---
PATIENT TAKEN TO ER ENTRANCE VIA WHEELCHIAR WHERE HE LEFT IN STABLE CONDITION IN THE CARE OF HIS FAMILY MEMBERS. PATIENT LEFT WITH PORTABLE OXYGEN WITH ALL HIS BELONGINGS .
== END 2023-09-18 13:48 | disposition home or self-care (01) | DRG 189 ==
LOC: COL.ER 17:58 → MEDICAL 21:08
PROVIDERS: Internal Medicine; Nurse Practitioner Family; Physician Assistant; ADMIT Internal Medicine
PROC: 5A0935A Assistance with Respiratory Ventilation, Less than 24 Consecutive Hours, High Flow/Velocity Cannula (ICD-10-PCS; principal; 2023-09-17)
DX: J96.01 Acute respiratory failure with hypoxia (principal); E43 Unspecified severe protein-calorie malnutrition; J44.1 Chronic obstructive pulmonary disease with (acute) exacerbation; R65.10 Systemic inflammatory response syndrome (SIRS) of non-infectious origin without acute organ dysfunction; E87.1 Hypo-osmolality and hyponatremia; Z68.1 Body mass index [BMI] 19.9 or less, adult; K86.1 Other chronic pancreatitis; F11.20 Opioid dependence, uncomplicated; B97.4 Respiratory syncytial virus as the cause of diseases classified elsewhere; G89.29 Other chronic pain; G40.909 Epilepsy, unspecified, not intractable, without status epilepticus; M54.2 Cervicalgia; I10 Essential (primary) hypertension; E87.8 Other disorders of electrolyte and fluid balance, not elsewhere classified; F17.210 Nicotine dependence, cigarettes, uncomplicated; R53.81 Other malaise; M54.9 Dorsalgia, unspecified; Z20.822 Contact with and (suspected) exposure to COVID-19; M48.00 Spinal stenosis, site unspecified; I45.81 Long QT syndrome; Z85.05 Personal history of malignant neoplasm of liver; Z85.118 Personal history of other malignant neoplasm of bronchus and lung; Z23 Encounter for immunization
CPT/HCPCS: A9284; J0696; J1100; J2060; J2270; J7030

== ENCOUNTER 2023-09-18 14:58 | Emergency (ER) | payer MEDICARE ==
[~2023-09-18] VITALS: Ht 177.8 cm; Wt 48.3 kg
[~2023-09-18 14:58] MED LIST changes: +DOXYCYCLINE HY100 MG PO; +FENTANYL 50MCG TD; +KEPPRA 500MG500 MG PO; +PREDNISONE10 MG PO; +TRELEGY ELLIPT1 EAC1 IH; -Thiamine 100 MG TAB PO SCH
[2023-09-18] MEDS ORDERED: oxyCODONE/Acetaminophen 10-325 MG TAB PO ONE (15:15)
[2023-09-18 17:10] VITALS: BP 151/97; PULSE 77; TEMP 97.5
== END 2023-09-18 17:07 | disposition home or self-care (01) ==
LOC: COL.ER 14:58
DX: R51.9 Headache, unspecified (principal); W01.198A Fall on same level from slipping, tripping and stumbling with subsequent striking against other object, initial encounter; Y93.01 Activity, walking, marching and hiking; Y92.009 Unspecified place in unspecified non-institutional (private) residence as the place of occurrence of the external cause

== ENCOUNTER → 2023-09-29 | Outpatient (CLI) | payer MEDICARE, MEDICAID ==
[~2023-09-29] MED LIST changes: +Iohexol 300 - 100 ML VIAL IV ONE; +NS 100 ML IV SCH
== END ==
LOC: COL.RAD 09:22
DX: C22.0 Liver cell carcinoma (principal)
CPT/HCPCS: Q9967